=== PATIENT | male | born 1990 | race Caucasian/White ===

== ENCOUNTER → 2020-04-21 18:36 | Outpatient (BNVA) | payer SELFPAY | PROVIDERS: Family Provider Nurse Practitioner Family; PCP Nurse Practitioner Family; Visit Provider Family Medicine | DX: I10 Essential (primary) hypertension (principal); G25.81 Restless legs syndrome; R35.0 Frequency of micturition; R10.9 Unspecified abdominal pain; Z13.1 Encounter for screening for diabetes mellitus; Z68.44 Body mass index [BMI] 60.0-69.9, adult; Z13.220 Encounter for screening for lipoid disorders | CPT/HCPCS: 80053; 80061; 81000; 83036; 83690; 85025 ==

== ENCOUNTER → 2020-04-23 15:27 | Outpatient (BNVA) | payer SELFPAY | PROVIDERS: Family Provider Nurse Practitioner Family; PCP Nurse Practitioner Family; Visit Provider Emergency Medicine | DX: M10.9 Gout, unspecified (principal) | CPT/HCPCS: 84550 ==

== ENCOUNTER 2021-02-09 07:53 | Emergency (ER) | payer SELFPAY ==
[2021-02-09] VITALS (7 sets, daily range): BP systolic 123–163; BP diastolic 83–129; PULSE 79–117; RESP 16–95; TEMP 36.2; O2SAT 94–98; BMI 67.3
--- NOTE | 2021-02-09 08:18 | W.ED.CHESTPA ---
HPI - Chest Pain General: Chief Complaint: Chest Pain Stated Complaint: Chest Pain Time Seen by Provider: 02/09/21 07:54 History of Present Illness: HPI narrative: 30-year-old male presents emergency room complaining of chest pain. He had an episode 2 days ago began while he was preparing to go to a [employer] he took some aspirin at his regular medicines lisinopril and citalopram and seem to resolve eventually cannot recall how long it was not associated with any shortness of breath diaphoresis nausea or vomiting. 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 He has not taken anything for it this morning. He has a history of diabetes mellitus and hypertension. He is diabetic controlled insulin this was restarted on a new drug but evidently they have not started him on that yet. He denies any associated shortness of breath with this denies any cough fever sweats or chills. Sometime in his early 20s he had a angiogram done which she reports showed enlarged heart but was otherwise negative this was done in [place].. MD complaint: chest pain Pertinent past history: coronary artery disease Onset (ago): day(s) Timing of current episode: episodic Onset: during rest Pain location: left chest Pain radiation: back, jaw/teeth and left shoulder Severity: mild Quality: tightness and heaviness Relieving factors: other (time) Exacerbating factors: nothing Associated symptoms: Reports leg edema, nausea, palpitations, sense of impending doom and vomiting; Deny abdominal pain, diaphoresis, dyspnea, fever(s) or syncope Treatment prior to arrival: none Review of Systems Const: Denies: fever(s) or diaphoresis ENMT: Denies: throat pain, ear or mastoid pain, nasal discharge or nasal congestion Card: Reports: palpitations; Denies: syncope Resp: Denies: dyspnea GI: Reports: nausea and vomiting; Denies: abdominal pain : Denies: flank pain, dysuria, urinary frequency or urinary urgency Skin/Breast: Denies: rash or pruritus [facility] ED PFSH: Medical History Diabetes Hypertension Surgical History H/O hernia repair S/P cholecystectomy S/P tonsillectomy Family History Other Heart disease Social History Smoking and tobacco status: current every day smoker smokeless tobacco Smokeless tobacco user: chewing tobacco Smokeless tobacco details: 1 CAN DAILY Alcohol intake: never Current gender identity: Male Physical Exam Const: COMMON NORMALS: no acute distress GENERAL APPEARANCE: cooperative and comfortable ORIENTATION/CONSCIOUSNESS: Yes awake, Yes oriented to person, Yes oriented to place and Yes oriented to time HENMT: COMMON NORMALS: normocephalic, atraumatic and hearing grossly normal bilaterally HEAD & SCALP: normocephalic and atraumatic Neck/C-Spine: COMMON NORMALS: no JVD Resp: COMMON NORMALS: normal respiratory effort, No retractions, No use of accessory muscles and clear to auscultation bilaterally AUSCULTATION: clear to auscultation bilaterally Cardio: COMMON NORMALS: no JVD, regular rate, regular rhythm and No murmurs present (Cardio) RATE: regular rate RHYTHM: regular rhythm GI: COMMON NORMALS: Soft to palpation and No hepatosplenomegaly present AUSCULTATION: Yes normoactive bowel sounds PALPATION: Yes Soft to palpation, No Tenderness to palpation present (GI), No Guarding due to palpation present (GI) and Yes No hepatosplenomegaly present Extremity: COMMON NORMALS: normal to inspection, capillary refill normal, no clubbing, cyanosis or edema, no calf tenderness and no pedal edema Neuro: SENSORIUM/ORIENTATION: Yes oriented to person, Yes oriented to place and Yes oriented to time Skin: COMMON NORMALS: no rashes or lesions noted GENERAL SKIN EXAM: no rashes or lesions noted Course Vital Signs: Vital signs: Vital Signs Temperature 97.1 F L 02/09/21 07:55 Pulse Rate 91 02/09/21 11:50 Respiratory Rate 19 H 02/09/21 11:50 Blood Pressure 123/88 02/09/21 11:50 Pulse Oximetry 98 02/09/21 11:50 MDM - Chest Pain MDM Narrative: Medical decision making narrative: Reviewed findings with the patient. We will start him on Imdur to have him take aspirin daily and set him up [facility] test return if he has any further problems. Lab Data: Labs: Lab Results 02/09/21 02/09/21 02/09/21 Range/Units 08:25 08:25 08:25 WBC 9.1 (4.0-10.0) 10^3/ uL RBC 5.15 (4.1-5.3) 10^6/u L Hgb 13.6 (11.7-16.6) g/dL Hct 43.1 (42.0-52.0) % MCV 83.7 (80-94) fL MCH 26.4 L (28.0-34.0) pg MCHC 31.6 (30.0-36.0) g/dL RDW 14.2 (12.1-15.1) % Plt Count 309 (130-400) 10^3/c mm MPV 11.4 H (7.4-10.4) fL Neut % (Auto) 49.3 % Lymph % (Auto) 39.2 % [place] % (Auto) 6.8 % Eos % (Auto) 3.1 % Baso % (Auto) 0.9 % Neut # (Auto) 4.50 (1.8-7.7) 10^3/u L Lymph # (Auto) 3.6 (0.8-4.8) 10^3/u L [place] # (Auto) 0.6 (0.2-0.9) 10^3/u L Eos # (Auto) 0.3 (0.0-0.8) 10^3/u L Baso # (Auto) 0.1 (0.0-0.1) 10^3/u L Nucleated RBC % (a uto) 0 % Nucleated RBCs # 0.0 /100WBC Sodium 134 L (136-145) mmol/L Potassium 4.5 (3.5-5.1) mmol/L Chloride 99 (98-107) mmol/L Carbon Dioxide 26 (22-29) mmol/L Anion Gap 13.5 (5-19) BUN 11 (6-20) mg/dL Creatinine 0.7 (0.7-1.2) mg/dL GFR Calculation 130.7 H (90-130) mL/min Glucose 231 H (65-115) mg/dL Calculated Osmolal ity 285 (285-295) mOsm/k g Calcium 8.3 L (8.5-10.5) mg/dL Total Bilirubin 0.4 (0.15-1.2) mg/dL AST 53 H (0-40) U/L ALT 74 H (0-41) U/L Alkaline Phosphata se 53 (40-130) IU/L Creatine Kinase 86 (39-308) U/L Troponin T Baselin e 8 (0-15) ng/L Troponin T 120 [place] (0-15) ng/L Delta Troponin T (0-10) ABS# Total Protein 6.7 (6.6-8.7) g/dL Albumin 3.9 (3.5-5.2) g/dL Globulin 2.8 (1.3-4.6) g/dL /03/25 Range/Units 10:26 WBC (4.0-10.0) 10^3/ uL RBC (4.1-5.3) 10^6/u L Hgb (11.7-16.6) g/dL Hct (42.0-52.0) % MCV (80-94) fL MCH (28.0-34.0) pg MCHC (30.0-36.0) g/dL RDW (12.1-15.1) % Plt Count (130-400) 10^3/c mm MPV (7.4-10.4) fL Neut % (Auto) % Lymph % (Auto) % [place] % (Auto) % Eos % (Auto) % Baso % (Auto) % Neut # (Auto) (1.8-7.7) 10^3/u L Lymph # (Auto) (0.8-4.8) 10^3/u L [place] # (Auto) (0.2-0.9) 10^3/u L Eos # (Auto) (0.0-0.8) 10^3/u L Baso # (Auto) (0.0-0.1) 10^3/u L Nucleated RBC % (a uto) % Nucleated RBCs # /100WBC Sodium (136-145) mmol/L Potassium (3.5-5.1) mmol/L Chloride (98-107) mmol/L Carbon Dioxide (22-29) mmol/L Anion Gap (5-19) BUN (6-20) mg/dL Creatinine (0.7-1.2) mg/dL GFR Calculation (90-130) mL/min Glucose (65-115) mg/dL Calculated Osmolal ity (285-295) mOsm/k g Calcium (8.5-10.5) mg/dL Total Bilirubin (0.15-1.2) mg/dL AST (0-40) U/L ALT (0-41) U/L Alkaline Phosphata se (40-130) IU/L Creatine Kinase (39-308) U/L Troponin T Baselin e (0-15) ng/L Troponin T 120 [place] 6.00 (0-15) ng/L Delta Troponin T -2.00 L (0-10) ABS# Total Protein (6.6-8.7) g/dL Albumin (3.5-5.2) g/dL Globulin (1.3-4.6) g/dL Discharge Plan Discharge Patient Disposition: Home Clinical Impression: Atypical chest pain Condition: Stable Prescriptions: New isosorbide mononitrate 30 mg tablet extended release 24 hr 30 mg PO DAILY Qty: 30 RF: 0 Aspirin Childrens 81 mg tablet,chewable 81 mg PO DAILY Qty: 30 RF: 0 No Action methylprednisolone [Medrol (Claudy)] 4 mg tablets,dose pack See Rx Instructions PO PER PKG DIR Qty: 21 RF: 0 triamcinolone acetonide 0.5 % ointment 1 applic TOPICAL BID Qty: 15 RF: 1 Novolin N NPH U-100 Insulin 100 unit/mL suspension 5 unit SUBCUT BID Qty: 10 RF: 1 (DME) insulin syringes (disposable) 1 mL syringe See Rx Instructions .ROUTE .MEDSUPPLY Qty: 100 RF: 5 allopurinol 100 mg tablet 50 mg PO DAILY Qty: 30 RF: 1 prednisone 10 mg tablet 30 mg PO DAILY 5 Days Qty: 15 RF: 0 ibuprofen 600 mg tablet 600 mg PO Q8H PRNRF: 0 albuterol sulfate [ProAir HFA] 90 mcg/actuation HFA aerosol inhaler 2 puff INHALATION QID PRN (Reason: shortness of breath or wheezing) 30 Days Qty: 18 RF: 5 ropinirole 1 mg tablet 1 mg PO DAILY 30 Days Qty: 30 RF: 1 metoprolol succinate 25 mg tablet extended release 24 hr 25 mg PO DAILY 30 Days Qty: 30 RF: 1 lisinopril-hydrochlorothiazide 20-25 mg tablet 1 tab PO DAILY 30 Days Qty: 30 RF: 1 escitalopram oxalate 10 mg tablet 10 mg PO QDAY Qty: 30 RF: 0 Discharge Orders: Discharge ED (Routine); Ordered 02/09/21 Ordered By: William Nieto Referrals: Violet Alex MD [Primary Care Provider] - Discharge Diet: Usual diet Discharge Activity: Increase activity as tolerated Patient Instructions: Opioid Safety Coding Level of Care Code ED French Cord Binder for Chg Fwd Exam Comprehensive
--- NOTE | 2021-02-09 08:19 | ECG_ITS ---
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 Measurements Intervals [place] Rate: 98 P: 41 OK: 134 QRS: 58 QRSD: 109 T: 29 QT: 359 QTc: 460 Interpretive Statements SINUS RHYTHM INCOMPLETE RIGHT BUNDLE BRANCH BLOCK [90+ ms QRS DURATION, TERMINAL R IN V1/V2, 40+ ms S IN I/aVL/V4/V5/V6] Compared to ECG 06/28/2018 12:03:05 No significant changes Electronically Signed On 02-09-2021 12:31:57 CDT by Jack Honeycutt M.D. [id number]
--- NOTE | 2021-02-09 08:19 | XRR_ITS ---
PROCEDURE INFORMATION: Exam: XR Chest Exam date and time: 02/09/2021 8:23 AM Age: 30 years old Clinical indication: Pain; Chest pressure; Additional info: Chest pain TECHNIQUE: Imaging protocol: XR of the chest. Views: 1 view. COMPARISON: CR Chest 1 [place] [id number] 06/28/2018 12:26 PM FINDINGS: Lungs: Hyperinflation and mild interstitial prominence, without acute airspace disease. Pleural spaces: No pleural effusion. Heart/Mediastinum: Cardiac silhouette accentuated by epicardial fat. Bones/joints: Unremarkable. XR/XR chest 1V portable [id number] IMPRESSION: No acute airspace or pleural disease.
[2021-02-09 08:41] LABS: Basophils # 0.1 10^3/uL (0.0-0.1); Basophils % 0.9 %; Eosinophils # 0.3 10^3/uL (0.0-0.8); Eosinophils % 3.1 %; Hematocrit 43.1 % (42.0-52.0); Hemoglobin 13.6 g/dL (11.7-16.6); Lymphocytes # 3.6 10^3/uL (0.8-4.8); Lymphocytes % 39.2 %; Mean Corpuscular HGB Conc 31.6 g/dL (30.0-36.0); Mean Corpuscular Hemoglobin 26.4 pg (28.0-34.0); Mean Corpuscular Volume 83.7 fL (80-94); Mean Platelet Volume 11.4 fL (7.4-10.4); Monocytes # 0.6 10^3/uL (0.2-0.9); Monocytes % 6.8 %; Neutrophils % 49.3 %; Nucleated Red Blood Cells % 0 %; Platelet Count 309 10^3/cmm (130-400); Red Blood Count 5.15 10^6/uL (4.1-5.3); Red Cell Distribution Width 14.2 % (12.1-15.1); White Blood Count 9.1 10^3/uL (4.0-10.0)
[2021-02-09] MEDS: aspirin 81 mg Chew Tablet 324 MG PO (08:44)
[2021-02-09 09:00] LABS: Troponin(5th) Baseline 8 ng/L (0-15)
[2021-02-09 09:02] LABS: Alanine Aminotransferase 74 U/L (0-41); Albumin Level 3.9 g/dL (3.5-5.2); Alkaline Phosphatase 53 IU/L (40-130); Anion Gap 13.5 (5-19); Aspartate Amino Transferase 53 U/L (0-40); Blood Urea Nitrogen 11 mg/dL (6-20); Calcium 8.3 mg/dL (8.5-10.5); Carbon Dioxide 26 mmol/L (22-29); Chloride 99 mmol/L (98-107); Creatine Phosphokinase 86 U/L (39-308); Globulin 2.8 g/dL (1.3-4.6); Glomerular Filtration Rate 130.7 mL/min (90-130); Glucose 231 mg/dL (65-115); Osmolality Calculated 285 mOsm/kg (285-295); Potassium 4.5 mmol/L (3.5-5.1); Sodium 134 mmol/L (136-145); Total Bilirubin 0.4 mg/dL (0.15-1.2); Total Protein 6.7 g/dL (6.6-8.7)
--- NOTE | 2021-02-09 10:19 | ECG_ITS ---
[facility] Test Date: 2021-02-09 Pat Name: Wiliam Cain Department: Room: Gender: Male Psychologist Chief: : 1990 Requested By: William Cuba Order Number: [id number] Abigail MD: Jack Honeycutt M.D. Measurements Intervals [place] Rate: 76 P: 0 PA: 131 QRS: 55 QRSD: 106 T: 25 QT: 394 QTc: 445 Interpretive Statements SINUS RHYTHM INCOMPLETE RIGHT BUNDLE BRANCH BLOCK [90+ ms QRS DURATION, TERMINAL R IN V1/V2, 40+ ms S IN I/aVL/V4/V5/V6] NONSPECIFIC T-WAVE ABNORMALITY Compared to ECG 02/09/2021 08:01:10 T-wave abnormality now present Electronically Signed On 02-09-2021 12:36:11 CDT by Jack Honeycutt M.D. [id number] f
--- NOTE | 2021-02-11 14:34 | DCPLANNER ---
ar manager had message to schedule an outpatient stress test for patient. ar manager faxed signed order to centralized scheduling. ar manager will call for appointment information.
--- NOTE | 2021-02-19 12:36 | DCPLANNER ---
Patient has a follow up appointment scheduled for Tuesday, March 06, 2021 at 9:15 for an outpatient stress test.
--- NOTE | 2021-04-02 06:58 | DCPLANNER ---
Patient had an out patient stress test scheduled for 03.06.21 - the test was cancelled.
== END 2021-02-09 11:53 | disposition home or self-care (01) ==
PROVIDERS: Emergency Provider Family Medicine; PCP Family Medicine
DX: R07.89 Other chest pain (principal); Z79.4 Long term (current) use of insulin; E11.9 Type 2 diabetes mellitus without complications; I10 Essential (primary) hypertension; F17.220 Nicotine dependence, chewing tobacco, uncomplicated
CPT/HCPCS: 36415; 71045; 80053; 82550; 84484; 85025; 93005; 99283

== ENCOUNTER 2021-02-22 11:30 | Emergency (ER) | payer SELFPAY ==
[2021-02-22 11:50] VITALS: PULSE 107; RESP 24; TEMP 36.9; O2SAT 94; BMI 63.3
--- NOTE | 2021-02-22 12:09 | XRR_ITS ---
PROCEDURE INFORMATION: Exam: XR Chest Exam date and time: 02/22/2021 12:09 PM Age: 30 years old Clinical indication: Shortness of breath; Additional info: SOB TECHNIQUE: Imaging protocol: XR of the chest. Views: 1 view. COMPARISON: CR XR chest 1V portable [id number] 02/09/2021 8:28 AM FINDINGS: Lungs: Unremarkable. No consolidation. Pleural spaces: Unremarkable. No pleural effusion. No pneumothorax. Heart/Mediastinum: Unremarkable. No cardiomegaly. Bones/joints: Unremarkable. XR/XR chest 1V portable [id number] IMPRESSION: No acute findings.
--- NOTE | 2021-02-22 12:09 | ECG_ITS ---
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 Measurements Intervals [place] Rate: 110 P: 28 [place]: 128 QRS: 51 QRSD: 110 T: 15 QT: 329 QTc: 446 Interpretive Statements SINUS TACHYCARDIA INCOMPLETE RIGHT BUNDLE BRANCH BLOCK [90+ ms QRS DURATION, TERMINAL R IN V1/V2, 40+ ms S IN I/aVL/V4/V5/V6] NONSPECIFIC T-WAVE ABNORMALITY ABNORMAL RHYTHM ECG Compared to ECG 02/09/2021 10:40:19 Sinus rhythm no longer present T-wave abnormality still present Electronically Signed On 02-22-2021 19:10:35 CDT by Jorge Russell M.D. [id number]
--- NOTE | 2021-02-22 12:10 | W.ED.SOB ---
HPI - SOB/Dyspnea General: Chief Complaint: Shortness of Breath/Dyspnea Stated Complaint: sob/cp Time Seen by Provider: 02/22/21 12:04 History of Present Illness: HPI Narrative: he presents from [facility] today with increasing shortness of breath and chest discomfort. Patient said he has been sick the last 2 to 3 weeks having more difficult time breathing said he is having to use inhaler more often. Has had some sinus and allergy problems also. Does have stress test scheduled in the next couple weeks. He says his chest discomfort comes when he takes in a deep breath. MD elicited complaint: shortness of breath, cough and pain with inspiration Pertinent past history: asthma Onset (ago): week(s) Context: recent illness Timing: intermittent and progressively worsening Severity: moderate Exacerbating factors: exertion Associated symptoms: Reports chest congestion and cough; Deny abdominal pain, chest pain, extremity pain, fever(s), nausea or vomiting Review of Systems Const: Denies: fever(s), chills or body aches Eyes: Denies: change in vision or blurry vision ENMT: Reports: nasal congestion; Denies: throat pain Card: Denies: chest pain or dyspnea on exertion Resp: Reports: dyspnea, productive cough, pain on inspiration, chest congestion and other (Pleuritic pain) GI: Denies: abdominal pain, nausea or vomiting : Denies: difficulty urinating Musc: Denies: extremity pain Skin/Breast: Denies: rash Neuro: Denies: headache(s) Psych: Denies: anxiety or depression Stas/Lymph: Denies: easy bruising PFSH ED PFSH: Medical History Diabetes Hypertension Surgical History H/O hernia repair S/P cholecystectomy S/P tonsillectomy Family History Other Heart disease Social History Smoking and tobacco status: current every day smoker smokeless tobacco Smokeless tobacco user: chewing tobacco Smokeless tobacco details: 1 CAN DAILY Alcohol intake: never Current gender identity: Male Physical Exam Const: COMMON NORMALS: no acute distress, average body habitus and patient oriented x3 HENMT: COMMON NORMALS: normocephalic HEAD & SCALP: normal to inspection and normocephalic FACE & SINUS: normal facial exam Eye: COMMON NORMALS: conjunctivae normal GENERAL EYE: appearance normal, both eyes and all related structures CONJUNCTIVA: Yes conjunctivae normal Neck/C-Spine: COMMON NORMALS: no JVD Chest: COMMONS NORMALS: normal inspection of the chest Resp: COMMON NORMALS: normal respiratory effort and clear to auscultation bilaterally AUSCULTATION: clear to auscultation bilaterally, rhonchi, wheezes and diminished lung sounds Cardio: COMMON NORMALS: no JVD, regular rate and regular rhythm RATE: regular rate RHYTHM: regular rhythm GI: COMMON NORMALS: Normal to inspection, nondistended, normoactive bowel sounds present Extremity: COMMON NORMALS: normal to inspection and full ROM Neuro: COMMON NORMALS: patient oriented x3 Course Vital Signs: Vital signs: Vital Signs Temperature 98.5 F 02/22/21 11:50 Pulse Rate 104 H 02/22/21 12:55 Respiratory Rate 19 H 02/22/21 12:55 Blood Pressure 100/62 02/22/21 12:55 Pulse Oximetry 92 02/22/21 12:55 MDM - SOB/Dyspnea MDM Narrative: Medical decision making narrative: Mr. Cain is a pleasant overweight patient is having some difficulty breathing over the last few weeks. Has a history of asthma does use nebulizer and inhaler. Patient's had a cough been having some shortness of breath. Pain with inspiration. Also has history of chronic obstructive sleep apnea pretty severe. Sats drop while sleeping. Just started recently on diabetic medication this past week. Patient's labs show high blood sugar today low sodium x-rays negative for pneumonia troponin was normal at 6. Patient responded well to breathing treatment. Patient will have medications added to his regimen encouraged to take Metformin 500 twice a day while he is on his steroid medication is to follow-up Dr. Alex here soon. Lab Data: Labs: Lab Results 02/22/21 02/22/21 02/22/21 Range/Units 12:38 12:38 12:38 WBC 11.1 H (4.0-10.0) 10^3/ uL RBC 5.18 (4.1-5.3) 10^6/u L Hgb 13.8 (11.7-16.6) g/dL Hct 44.0 (42.0-52.0) % MCV 84.9 (80-94) fL MCH 26.6 L (28.0-34.0) pg MCHC 31.4 (30.0-36.0) g/dL RDW 13.9 (12.1-15.1) % Plt Count 306 (130-400) 10^3/c mm MPV 11.7 H (7.4-10.4) fL Neut % (Auto) 44.8 % Lymph % (Auto) 44.1 % [place] % (Auto) 7.0 % Eos % (Auto) 3.2 % Baso % (Auto) 0.6 % Neut # (Auto) 4.98 (1.8-7.7) 10^3/u L Lymph # (Auto) 4.9 H (0.8-4.8) 10^3/u L [place] # (Auto) 0.8 (0.2-0.9) 10^3/u L Eos # (Auto) 0.4 (0.0-0.8) 10^3/u L Baso # (Auto) 0.1 (0.0-0.1) 10^3/u L Nucleated RBC % (a uto) 0 % Nucleated RBCs # 0.0 /100WBC Sodium 129 L (136-145) mmol/L Potassium 4.5 (3.5-5.1) mmol/L Chloride 93 L (98-107) mmol/L Carbon Dioxide 25 (22-29) mmol/L Anion Gap 15.5 (5-19) BUN 14 (6-20) mg/dL Creatinine 1.0 (0.7-1.2) mg/dL GFR Calculation 86.6 L (90-130) mL/min Glucose 368 H (65-115) mg/dL Calculated Osmolal ity 283 L (285-295) mOsm/k g Calcium 9.0 (8.5-10.5) mg/dL Total Bilirubin 0.4 (0.15-1.2) mg/dL AST 57 H (0-40) U/L ALT 98 H (0-41) U/L Alkaline Phosphata se 58 (40-130) IU/L Troponin T Baselin e 6 (0-15) ng/L Total Protein 6.8 (6.6-8.7) g/dL Albumin 3.7 (3.5-5.2) g/dL Globulin 3.1 (1.3-4.6) g/dL EKG Data^: EKG 1: EKG Interpretation Date: 02/22/21 EKG interpretation time: 12:20 Computer Generated Interpretation: Sinus tachycardia ventricular rate 110 bpm [place] interval 128 ms QRS durations 110 ms QT is 329 ms right bundle branch block Discharge Plan Discharge Patient Disposition: Home Clinical Impression: Acute asthmatic bronchitis, Hyponatremia Diabetes Qualifiers: Diabetes mellitus type: type 2 Diabetes mellitus skilled nursing insulin use: without intermodal dispatcher use Diabetes mellitus complication status: with hyperglycemia Qualified Code(s): E11.65 - Type 2 diabetes mellitus with hyperglycemia Apnea, sleep Qualifiers: Sleep apnea type: other type Qualified Code(s): G47.39 - Other sleep apnea Condition: Stable Prescriptions: New prednisone 20 mg tablet 10 mg PO DAILY Qty: 7 RF: 0 Flovent HFA 110 mcg/actuation HFA aerosol inhaler 2 inh inhalation BID Qty: 12 RF: 0 doxycycline hyclate 100 mg capsule 100 mg PO BID 7 Days Qty: 14 RF: 0 ipratropium-albuterol 0.5 mg-3 mg(2.5 mg base)/3 mL solution for nebulization 3 ml inhalation Q8H PRN (Reason: shortness of breath or wheezing) Qty: 90 RF: 0 No Action metformin 500 mg tablet 500 mg PO DAILY 30 Days Qty: 30 RF: 0 isosorbide mononitrate 30 mg tablet extended release 24 hr 30 mg PO DAILY Qty: 30 RF: 0 gabapentin 300 mg capsule 300 mg PO TID PRN (Reason: back pain) 30 Days Qty: 90 RF: 1 lisinopril 20 mg tablet 20 mg PO DAILY 30 Days Qty: 30 RF: 1 hydrochlorothiazide 25 mg tablet 25 mg PO QAM 30 Days Qty: 30 RF: 1 ibuprofen 600 mg tablet 600 mg PO Q8H PRNRF: 0 albuterol sulfate [ProAir HFA] 90 mcg/actuation HFA aerosol inhaler 2 puff INHALATION QID PRN (Reason: shortness of breath or wheezing) 30 Days Qty: 18 RF: 5 Aspirin Childrens 81 mg tablet,chewable 81 mg PO DAILY Qty: 30 RF: 0 Discharge Orders: Discharge ED (Routine); Ordered 02/22/21 Ordered By: Petey Ma Referrals: Violet Alex MD [Primary Care Provider] - Discharge Diet: Usual diet Discharge Activity: Increase activity as tolerated Patient Instructions: Hyperglycemia, Acute Bronchitis (ED) Activity Restrictions/Additional Instructions: Follow-up with medical provider as directed. Take medications as prescribed. Return to the ER or your medical provider if condition worsens. Please read and understand discharge instructions. If any questions ask please. Use Metformin 500 mg twice a day while taking steroids. Follow-up Dr. Alex as soon as possible. Coding Level of Care Code ED [facility] Medical Biller for Chg Fwd Exam Comprehensive
[2021-02-22 12:17] VITALS: PULSE 108; PULSE 110; RESP 18; O2SAT 92
[2021-02-22] MEDS: ipratropium-albuterol 3 mL Neb INHALATION (12:22)
[2021-02-22 12:24] VITALS: PULSE 107; RESP 18; O2SAT 95
[2021-02-22 12:28] VITALS: PULSE 116; RESP 18; O2SAT 95
[2021-02-22 12:47] LABS: Basophils # 0.1 10^3/uL (0.0-0.1); Basophils % 0.6 %; Eosinophils # 0.4 10^3/uL (0.0-0.8); Eosinophils % 3.2 %; Hemoglobin 13.8 g/dL (11.7-16.6); Lymphocytes # 4.9 10^3/uL (0.8-4.8); Lymphocytes % 44.1 %; Mean Corpuscular HGB Conc 31.4 g/dL (30.0-36.0); Mean Corpuscular Hemoglobin 26.6 pg (28.0-34.0); Mean Corpuscular Volume 84.9 fL (80-94); Mean Platelet Volume 11.7 fL (7.4-10.4); Monocytes # 0.8 10^3/uL (0.2-0.9); Neutrophils # 4.98 10^3/uL (1.8-7.7); Neutrophils % 44.8 %; Nucleated Red Blood Cells % 0 %; Platelet Count 306 10^3/cmm (130-400); Red Blood Count 5.18 10^6/uL (4.1-5.3); Red Cell Distribution Width 13.9 % (12.1-15.1); White Blood Count 11.1 10^3/uL (4.0-10.0)
[2021-02-22 12:55] VITALS: BP 100/62; PULSE 104; RESP 19; O2SAT 92
[2021-02-22 13:09] LABS: Troponin(5th) Baseline 6 ng/L (0-15)
[2021-02-22 13:12] LABS: Alanine Aminotransferase 98 U/L (0-41); Albumin Level 3.7 g/dL (3.5-5.2); Alkaline Phosphatase 58 IU/L (40-130); Anion Gap 15.5 (5-19); Aspartate Amino Transferase 57 U/L (0-40); Blood Urea Nitrogen 14 mg/dL (6-20); Carbon Dioxide 25 mmol/L (22-29); Chloride 93 mmol/L (98-107); Globulin 3.1 g/dL (1.3-4.6); Glomerular Filtration Rate 86.6 mL/min (90-130); Glucose 368 mg/dL (65-115); Osmolality Calculated 283 mOsm/kg (285-295); Potassium 4.5 mmol/L (3.5-5.1); Sodium 129 mmol/L (136-145); Total Bilirubin 0.4 mg/dL (0.15-1.2); Total Protein 6.8 g/dL (6.6-8.7)
[2021-02-22] MEDS: sodium chloride 0.9% 1,000 ML 999 ML IV (14:10)
[2021-02-22 14:54] VITALS: BP 101/58; PULSE 85; RESP 19; O2SAT 94
[2021-02-22 15:16] LABS: Troponin 5 2HR 6.68 ng/L (0-15); Troponin 5 2HR Delta 0.68 ABS# (0-10)
== END 2021-02-22 15:33 | disposition home or self-care (01) ==
PROVIDERS: Emergency Provider Nurse Practitioner Family; PCP Family Medicine
DX: J45.909 Unspecified asthma, uncomplicated (principal); E87.1 Hypo-osmolality and hyponatremia; E11.65 Type 2 diabetes mellitus with hyperglycemia; G47.39 Other sleep apnea; Z79.84 Long term (current) use of oral hypoglycemic drugs; Z79.82 Long term (current) use of aspirin; I10 Essential (primary) hypertension; F17.220 Nicotine dependence, chewing tobacco, uncomplicated
CPT/HCPCS: 36415; 71045; 80053; 84484; 85025; 93005; 94640; 96361; 96374; 99284; J2930; J7030

== ENCOUNTER → 2021-03-12 11:09 | Outpatient (BNVA) | payer MEDICAID, SELFPAY | PROVIDERS: PCP Family Medicine; Visit Provider Family Medicine | DX: I10 Essential (primary) hypertension (principal); E11.65 Type 2 diabetes mellitus with hyperglycemia; M51.36 Other intervertebral disc degeneration, lumbar region; E87.1 Hypo-osmolality and hyponatremia; J44.9 Chronic obstructive pulmonary disease, unspecified; R07.89 Other chest pain; R00.0 Tachycardia, unspecified; R79.81 Abnormal blood-gas level | CPT/HCPCS: 80053; 83036; 85025; 85379 ==

== ENCOUNTER 2021-03-13 10:16 | Outpatient (CLI) | payer MEDICAID, SELFPAY ==
--- NOTE | 2021-03-13 11:00 | CT_ITS ---
WS: [id number] CTA OF THE CHEST WITH PULMONARY EMBOLISM PROTOCOL TECHNIQUE: High-resolution contrast enhanced CTA of the chest with coronal and sagittal reformatted i mages with pulmonary embolism protocol. MIP images are also reviewed. CLINICAL INFORMATION: R07.89 - Other chest pain COMPARISON: None. DLP: 926.[address] scans at [facility] use at least one of these dose optimization techniques: automat ed exposure control; mA and/or kV adjustment per patient size (includes targeted exams where dose is matched to clinical indication); or iterative reconstruction. FINDINGS: Proximal main pulmonary arteries are normal. Visualized segmental and subsegmental pulmonary arteries appear patent. Distal pulmonary arteries not well visualized due to body habitus. No evidence of pul monary embolus. Normal caliber thoracic aorta. Aberrant right subclavian artery. No mediastinal or hilar lymphadenopa thy. Both lungs are well aerated. No acute pulmonary infiltrates. No focal pneumonia or pleural fluid . Tiny noncalcified nodule right upper lobe laterally measuring 3 mm. No axillary lymphadenopathy. Cholecystectomy clips. Adrenal glands are normal. Enlarged peripancreati c and shelly hepatis lymph nodes partially visualized in the upper abdomen are nonspecific. This can b e further evaluated with contrast-enhanced abdomen pelvis CT. Largest lymph node measures 2.3 x [address]/CT angio chest PE protcl [id number] IMPRESSION: 1. Proximal main pulmonary arteries are normal. Normal segmental and subsegmen erich pulmonary arteries. No evidence of pulmonary embolus. Distal pulmonary tanvir mita not well evaluated due to body habitus. 2. No mediastinal or hilar lymphadenopathy. 3. Aberrant right subclavian artery. 4. No acute pulmonary infiltrates. No consolidation or pleural fluid. 5. Enlarged upper abdominal and shelly hepatis lymph nodes largest measuring 2. 3 x 1.7 CCM. These are nonspecific and can be further evaluated with contrast-e nhanced abdomen pelvis CT.
[2021-03-13] MEDS: iohexol 350 mg/mL 100 mL Btl IV (11:30)
== END 2021-03-13 10:17 | disposition home or self-care (01) ==
LOC: RADWPI 10:17
PROVIDERS: PCP Family Medicine; Visit Provider Family Medicine
DX: R07.89 Other chest pain (principal); R00.0 Tachycardia, unspecified; R06.02 Shortness of breath; R59.0 Localized enlarged lymph nodes; Q27.8 Other specified congenital malformations of peripheral vascular system
CPT/HCPCS: 71275; Q9967

== ENCOUNTER → 2021-04-08 10:50 | Outpatient (BNVA) | payer MEDICAID, SELFPAY | PROVIDERS: PCP Family Medicine; Visit Provider Family Medicine | DX: M54.9 Dorsalgia, unspecified (principal); R59.0 Localized enlarged lymph nodes; E11.65 Type 2 diabetes mellitus with hyperglycemia; M62.830 Muscle spasm of back; R06.02 Shortness of breath; G47.33 Obstructive sleep apnea (adult) (pediatric); R07.89 Other chest pain; R91.1 Solitary pulmonary nodule | CPT/HCPCS: 80053; 81000; 83690 ==

== ENCOUNTER 2021-04-16 09:07 | Outpatient (CLI) | payer MEDICAID, SELFPAY ==
[2021-04-16] MEDS: iohexol 350 mg/mL 100 mL Btl IV (09:59)
--- NOTE | 2021-04-16 10:30 | CT_ITS ---
WS: [id number] CT ABDOMEN AND PELVIS WITH CONTRAST HISTORY: R59.0 - Localized enlarged lymph nodes TECHNIQUE: Imaging performed of the abdomen and pelvis with IV contrast. Single phase imaging of the abdomen. Coronal and sagittal reformats are submitted. All CT scans at [facility] use at least one of these dose optimization techniques: automated exposure control; mA and/or kV adjustment per patient size (includes targeted exams where dose is matched to clinical indication); or iterativ e reconstruction. IV CONTRAST: Omnipaque 300; 95 mL IV. Oral contrast: No DLP: 2816.79 mGy.cm COMPARISON: 03/13/2021 Lower thorax: Lung bases are clear. Heart is normal size. No hiatal hernia. Liver/biliary system: Marked enlargement of the liver extends over length of 22 cm with hepatic steat osis. No bile duct dilatation or mass. Gallbladder: Status post cholecystectomy. Pancreas: Normal size pancreas and pancreatic duct. No adjacent inflammation. Spleen: Normal size spleen. No mass or infarct. Adrenal glands: Normal. Right kidney: Normal. Left kidney: Normal. Aorta: Normal. Lymphadenopathy: There are several ovoid shaped lymph nodes in the shelly hepatis and celiac axis. Sim ilar to the prior study of 03/13/2021. Largest lymph node measures 2.5 x 1.4 cm anterior to the IVC. Th ere are additional smaller nodes around the celiac axis and shelly hepatis. Smaller mesenteric and RIG HT lower quadrant lymph nodes. Free fluid: None. GI tract: Appendix is normal. No GI tract obstruction. Abdominal wall: Unremarkable abdominal wall. No hernia. Pelvis: No free fluid or adenopathy within the pelvis. Minimally distended urinary bladder. Bones: No destructive bone lesions. L5 bilateral pars defects. CT/CT abdomen pelvis w con* [id number] IMPRESSION: 1. Again noted are the mildly prominent celiac axis, shelly hepatis and mesente naga lymph nodes. These may be reactive lymph nodes or secondary to mesenteric a denitis. Cannot exclude early neoplasm such as lymphoma. No additional source o f these mildly enlarged lymph nodes is evident. May need short-term follow-up C T abdomen and pelvis, 3 months, for further evaluation and assess for stability . 2. Marked hepatomegaly and hepatic steatosis. 3. Prior cholecystectomy.
== END 2021-04-16 09:08 | disposition home or self-care (01) ==
PROVIDERS: PCP Family Medicine; Visit Provider Family Medicine
DX: R59.0 Localized enlarged lymph nodes (principal); Z90.49 Acquired absence of other specified parts of digestive tract; R16.0 Hepatomegaly, not elsewhere classified; K76.0 Fatty (change of) liver, not elsewhere classified
CPT/HCPCS: 74177; Q9967

== ENCOUNTER → 2021-04-23 11:04 | Outpatient (BNVA) | payer MEDICAID, SELFPAY | PROVIDERS: PCP Family Medicine; Visit Provider Family Medicine | DX: J45.30 Mild persistent asthma, uncomplicated (principal); I10 Essential (primary) hypertension; E11.65 Type 2 diabetes mellitus with hyperglycemia; J44.9 Chronic obstructive pulmonary disease, unspecified; R34 Anuria and oliguria; R74.8 Abnormal levels of other serum enzymes | CPT/HCPCS: 80053; 80074; 81000; 83036; 83735; 85025 ==

== ENCOUNTER → 2021-04-24 14:12 | Outpatient (BNVA) | payer MEDICAID, SELFPAY | PROVIDERS: PCP Family Medicine; Referring Provider Family Medicine; Visit Provider Family Medicine | DX: R34 Anuria and oliguria (principal) | CPT/HCPCS: 81000; 87086 ==

== ENCOUNTER 2021-04-27 20:00 | Outpatient (CLI) | payer MEDICAID, SELFPAY | END 2021-04-27 20:01 | disposition home or self-care (01) | LOC: SLEEP 04-28 09:44 | PROVIDERS: PCP Family Medicine; Visit Provider Family Medicine | DX: G47.33 Obstructive sleep apnea (adult) (pediatric) (principal); J45.30 Mild persistent asthma, uncomplicated | CPT/HCPCS: 95810 ==

== ENCOUNTER 2021-04-28 15:37 | Emergency (ER) | payer MEDICAID, SELFPAY ==
[2021-04-28 15:57] VITALS: BP 164/83; PULSE 115; RESP 22; TEMP 36.7; O2SAT 94
--- NOTE | 2021-04-28 16:42 | XRR_ITS ---
PROCEDURE INFORMATION: Exam: XR Chest Exam date and time: 04/28/2021 4:42 PM Age: 30 years old Clinical indication: Other: Syncope; Additional info: Syncopal episode x today TECHNIQUE: Imaging protocol: XR of the chest. Views: 1 view. COMPARISON: CR XR chest 1V portable [id number] 02/22/2021 12:39 PM FINDINGS: Lungs: Unremarkable. No consolidation. Pleural spaces: Unremarkable. No pleural effusion. No pneumothorax. Heart/Mediastinum: Unremarkable. No cardiomegaly. Bones/joints: Unremarkable. XR/XR chest 1V portable [id number] IMPRESSION: No acute findings.
--- NOTE | 2021-04-28 16:42 | ECG_ITS ---
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 Measurements Intervals [place] Rate: 109 P: 46 [place]: 132 QRS: 71 QRSD: 126 T: 44 QT: 335 QTc: 451 Interpretive Statements SINUS TACHYCARDIA POSSIBLE RIGHT VENTRICULAR CONDUCTION DELAY [RSR (QR) IN V1/V2] ABNORMAL RHYTHM ECG Compared to ECG 02/22/2021 12:19:22 Incomplete right bundle-branch block no longer present T-wave abnormality no longer present Electronically Signed On 04-28-2021 17:07:35 CDT by Jack Honeycutt M.D. [id number]
--- NOTE | 2021-04-28 18:42 | ECG_ITS ---
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 Measurements Intervals [place] Rate: 106 P: 34 NH: 133 QRS: 54 QRSD: 105 T: 25 QT: 327 QTc: 436 Interpretive Statements SINUS TACHYCARDIA Compared to ECG 04/28/2021 16:08:57 No significant changes Electronically Signed On 04-28-2021 21:39:49 CDT by Jack Honeycutt M.D. [email or web address]/store/[id number]
--- NOTE | 2021-04-28 19:12 | ED_ITS ---
HPI - Syncope General: Chief Complaint: Syncope Stated Complaint: SYNCOPAL EVENT TODAY; DIZZY FOR PAST WEEK Time Seen by Provider: 04/28/21 19:12 History of Present Illness: HPI narrative: Mr. Cain is a 30-year-old gentleman with significant past medical history of diabetes and recent multiple changes in health presents to the emergency department due to syncope. He reports symptoms started approximately 1 week ago and was subacute. He describes spinning sensation followed by near syncope that occur at various times and in various positions. He cannot think of any specific provoking or exacerbating factor. Today he had a actual syncopal event associated with 1 of these episodes. Overall the intensity of symptoms is moderate to severe. He is associated generalized malaise. No other specific exacerbating relieving factors identified. Prior to 1 week ago he has never had similar episodes in the past. Review of Systems General: Reports: 10 or more systems reviewed and unremarkable except in HPI and below Narrative: CONSTITUTIONAL: positive for fever, fatigue, weakness EYES - denies pain, denies loss of vision EARS - denies ear issues. NOSE - denies congestion or rhinorrhea. THROAT - denies sore throat or difficulty swallowing. CARDIOVASCULAR - positive for chest pain at times, no palpatations RESPIRATORY - positive shortness of breath no cough GASTROINTESTINAL - positive for abdominal pain, no nausea vomiting, no changes in bowel habits GENITOURINARY - denies dysuria or urinary frequency MUSCULOSKELETAL- denies deformity or pain SKIN - denies rashes or new changed skin lesions NEUROLOGIC - see hpi HEMATOLOGIC/LYMPHATIC - denies easy bruising or lymphadenopathy. [facility] PFSH: Medical History Diabetes Can not tolerate high dose metformin Hypertension Morbid obesity with BMI of 60.0-69.9, adult Surgical History H/O hernia repair S/P cholecystectomy S/P tonsillectomy Family History Other Heart disease Social History Smoking and tobacco status: never smoked Alcohol intake: never Current gender identity: Male Physical Exam Narrative: EXAM NARRATIVE: GENERAL/CONSTITUTIONAL - well-appearing. No acute distress. obese Eyes - PERRL, no conjunctival injection ENMT - Atraumatic external nose and ears. Moist mucous membranes NECK - supple. trachea midline CARDIOVASCULAR - regular rate and rhythm. Peripheral pulses 2+ and equal RESPIRATORY -clear to auscultation bilaterally. No retractions or accessory muscle use. ABDOMEN/GI - mild tender diffusely. Nondistended. No tenderness to percussion or evidence of peritonitis MSK - Extremities without obvious deformity or tenderness to palpation SKIN - Warm, Dry NEURO - alert and appropriately oriented. strength and sensation intact. Moves all extremities equally. PSYCH - Appropriate mood and affect Course ED course: - Patient was seen and evaluated by me at bedside - Patient placed on cardiac monitors, IV access obtained - Initial evaluation notable for obese, mildly ill appearance. Tachycardia. - Labs and imaging obtained and reviewed - Fluids given - Labs notable for leukocytosis and transaminitis improving. Renal function improving. The etiology of either are unclear. Trichomonas seen in the urine. - Imaging notable for no acute findings to explain the patient's symptoms - Upon serial reexamination after treatment the patient was mildly improved with resolution of of dizziness - Based on patient history, evaluation, labs, and imaging as interpreted the most likely cause of the patient's condition is unclear - The results of ED evaluation were discussed with the patient including prescriptions and/or symptomatic cares (if applicable) including appropriate and responsible use, followup plan, and return precautions. The patient verbalized understanding and felt safe for discharge. - Patient discharged in satisfactory condition. Vital Signs: Vital signs: Vital Signs Temperature 98.1 F 04/28/21 15:57 Pulse Rate 102 H 04/28/21 23:09 Respiratory Rate 18 04/28/21 23:09 Blood Pressure 135/73 04/28/21 23:09 Pulse Oximetry 96 04/28/21 23:09 MDM - Syncope Medical Records: Attestation: I reviewed the patient's medical records. Lab Data: Attestation: I reviewed the patient's lab results. Labs: Lab Results 04/28/21 04/28/21 04/28/21 Range/Units 19:39 19:39 19:39 WBC 13.6 H (4.0-10.0) 10^3/ uL RBC 5.07 (4.1-5.3) 10^6/u L Hgb 13.8 (11.7-16.6) g/dL Hct 44.6 (42.0-52.0) % MCV 88.0 (80-94) fl MCH 27.2 L (28.0-34.0) pg MCHC 30.9 (30.0-36.0) g/dL RDW 15.0 (12.1-15.1) % Plt Count 312 (130-400) 10^3/c mm MPV 11.5 H (7.4-10.4) fL Neut % (Auto) 49.2 % Lymph % (Auto) 38.9 % Butler % (Auto) 6.2 % Eos % (Auto) 4.2 % Baso % (Auto) 1.0 % Neut # (Auto) 6.70 (1.8-7.7) 10^3/u L Lymph # (Auto) 5.3 H (0.8-4.8) 10^3/u L Butler # (Auto) 0.8 (0.2-0.9) 10^3/u L Eos # (Auto) 0.6 (0.0-0.8) 10^3/u L Baso # (Auto) 0.1 (0.0-0.1) 10^3/u L Nucleated RBC % (a uto) 0 % Nucleated RBCs # 0.0 /100WBC D-Dimer (0-0.59) ug/mIFE U Sodium 133 L (136-145) mmol/L Potassium 4.5 (3.5-5.1) mmol/L Chloride 95 L (98-107) mmol/L Carbon Dioxide 27 (22-29) mmol/L Anion Gap 15.5 (5-19) BUN 20 (6-20) mg/dL Creatinine 1.0 (0.7-1.2) mg/dL GFR Calculation 86.6 L (90-130) mL/min Glucose 233 H (65-115) mg/dL Calculated Osmolal ity 286 (285-295) mOsm/k g Calcium 9.4 (8.5-10.5) mg/dL Total Bilirubin 0.4 (0.15-1.2) mg/dL AST 105 H (0-40) U/L ALT 136 H (0-41) U/L Alkaline Phosphata se 65 (40-130) IU/L Troponin T Baselin e 7 (0-15) ng/L Troponin T 120 Min [place] (0-15) ng/L Delta Troponin T (0-10) ABS# Total Protein 7.5 (6.6-8.7) g/dL Albumin 3.8 (3.5-5.2) g/dL Globulin 3.7 (1.3-4.6) g/dL Lipase 240 H (13-60) U/L TSH (0.27-4.20) uIU/ mL Urine Color (Yellow) Urine Appearance (CLEAR) Urine pH (5-7) Ur Specific Gravit y (1.005-1.030) Urine Protein (Negative) Urine Glucose (UA) (Normal) Urine Ketones (Negative) Urine Blood (Negative) Urine Nitrate (Negative) Urine Bilirubin (Negative) Urine Urobilinogen (Negative) mg/dL Ur Leukocyte Geetha ase (Negative) Urine RBC Urine WBC (0-5) /hpf Ur Squamous Epith Cells (0-5) /hpf Amorphous Sediment Urine Bacteria (NONE) /hpf SARS-CoV-2 Ag (Rap id) (Negative) 04/28/21 04/28/21 04/28/21 Range/Units 19:39 19:39 20:10 WBC (4.0-10.0) 10^3/ uL RBC (4.1-5.3) 10^6/u L Hgb (11.7-16.6) g/dL Hct (42.0-52.0) % MCV (80-94) fl MCH (28.0-34.0) pg MCHC (30.0-36.0) g/dL RDW (12.1-15.1) % Plt Count (130-400) 10^3/c mm MPV (7.4-10.4) fL Neut % (Auto) % Lymph % (Auto) % Butler % (Auto) % Eos % (Auto) % Baso % (Auto) % Neut # (Auto) (1.8-7.7) 10^3/u L Lymph # (Auto) (0.8-4.8) 10^3/u L Butler # (Auto) (0.2-0.9) 10^3/u L Eos # (Auto) (0.0-0.8) 10^3/u L Baso # (Auto) (0.0-0.1) 10^3/u L Nucleated RBC % (a uto) % Nucleated RBCs # /100WBC D-Dimer 0.72 H (0-0.59) ug/mIFE U Sodium (136-145) mmol/L Potassium (3.5-5.1) mmol/L Chloride (98-107) mmol/L Carbon Dioxide (22-29) mmol/L Anion Gap (5-19) BUN (6-20) mg/dL Creatinine (0.7-1.2) mg/dL GFR Calculation (90-130) mL/min Glucose (65-115) mg/dL Calculated Osmolal ity (285-295) mOsm/k g Calcium (8.5-10.5) mg/dL Total Bilirubin (0.15-1.2) mg/dL AST (0-40) U/L ALT (0-41) U/L Alkaline Phosphata se (40-130) IU/L Troponin T Baselin e (0-15) ng/L Troponin T 120 Min [place] (0-15) ng/L Delta Troponin T (0-10) ABS# Total Protein (6.6-8.7) g/dL Albumin (3.5-5.2) g/dL Globulin (1.3-4.6) g/dL Lipase (13-60) U/L TSH 3.40 (0.27-4.20) uIU/ mL Urine Color Yellow (Yellow) Urine Appearance Clear (CLEAR) Urine pH 5 (5-7) Ur Specific Gravit y 1.015 (1.005-1.030) Urine Protein Neg (Negative) Urine Glucose (UA) 4+ H (Normal) Urine Ketones Negative (Negative) Urine Blood Neg (Negative) Urine Nitrate Negative (Negative) Urine Bilirubin Neg (Negative) Urine Urobilinogen Norm (Negative) mg/dL Ur Leukocyte Geetha ase Negative (Negative) Urine RBC Not Reportable Urine WBC 5-10 H (0-5) /hpf Ur Squamous Epith Cells 0-4 H (0-5) /hpf Amorphous Sediment Not Reportable Urine Bacteria Trace (NONE) /hpf SARS-CoV-2 Ag (Rap id) (Negative) 04/28/21 04/28/21 Range/Units 20:52 22:08 WBC (4.0-10.0) 10^3/ uL RBC (4.1-5.3) 10^6/u L Hgb (11.7-16.6) g/dL Hct (42.0-52.0) % MCV (80-94) fl MCH (28.0-34.0) pg MCHC (30.0-36.0) g/dL RDW (12.1-15.1) % Plt Count (130-400) 10^3/c mm MPV (7.4-10.4) fL Neut % (Auto) % Lymph % (Auto) % Butler % (Auto) % Eos % (Auto) % Baso % (Auto) % Neut # (Auto) (1.8-7.7) 10^3/u L Lymph # (Auto) (0.8-4.8) 10^3/u L Butler # (Auto) (0.2-0.9) 10^3/u L Eos # (Auto) (0.0-0.8) 10^3/u L Baso # (Auto) (0.0-0.1) 10^3/u L Nucleated RBC % (a uto) % Nucleated RBCs # /100WBC D-Dimer (0-0.59) ug/mIFE U Sodium (136-145) mmol/L Potassium (3.5-5.1) mmol/L Chloride (98-107) mmol/L Carbon Dioxide (22-29) mmol/L Anion Gap (5-19) BUN (6-20) mg/dL Creatinine (0.7-1.2) mg/dL GFR Calculation (90-130) mL/min Glucose (65-115) mg/dL Calculated Osmolal ity (285-295) mOsm/k g Calcium (8.5-10.5) mg/dL Total Bilirubin (0.15-1.2) mg/dL AST (0-40) U/L ALT (0-41) U/L Alkaline Phosphata se (40-130) IU/L Troponin T Baselin e (0-15) ng/L Troponin T 120 Min [place] 7.84 (0-15) ng/L Delta Troponin T 0.84 (0-10) ABS# Total Protein (6.6-8.7) g/dL Albumin (3.5-5.2) g/dL Globulin (1.3-4.6) g/dL Lipase (13-60) U/L TSH (0.27-4.20) uIU/ mL Urine Color (Yellow) Urine Appearance (CLEAR) Urine pH (5-7) Ur Specific Gravit y (1.005-1.030) Urine Protein (Negative) Urine Glucose (UA) (Normal) Urine Ketones (Negative) Urine Blood (Negative) Urine Nitrate (Negative) Urine Bilirubin (Negative) Urine Urobilinogen (Negative) mg/dL Ur Leukocyte Geetha ase (Negative) Urine RBC Urine WBC (0-5) /hpf Ur Squamous Epith Cells (0-5) /hpf Amorphous Sediment Urine Bacteria (NONE) /hpf SARS-CoV-2 Ag (Rap id) Negative (Negative) EKG Data^: EKG 1: Attestation: I personally reviewed and interpreted this EKG as follows: EKG interpretation date: 04/28/21 EKG interpretation time: 16:10 Prior EKG tracings: available for review Interpretation: Twelve-lead EKG shows a regular sinus rhythm at a rate of 109. UT interval 132, QRS duration 126, QTc 451. Normal axis. Interpretation: Sinus rhythm. Tachycardia, Non specific conduction delay EKG 2: Attestation: I personally reviewed and interpreted this EKG as follows: EKG interpretation date: 04/28/21 EKG interpretation time: 19:20 Prior EKG tracings: available for review Interpretation: Twelve-lead EKG shows a regular sinus rhythm of 106. UT interval 133, QRS duration 105, QTc 436. Normal axis. Interpretation: Sinus rhythm. Tachycardia. EKG 3: Attestation: I personally reviewed and interpreted this EKG as follows: EKG interpretation date: 04/28/21 EKG interpretation time: 22:47 Prior EKG tracings: available for review Interpretation: Twelve-lead EKG shows a regular sinus rhythm at a rate of 100. UT interval 125. QRS duration 110. [id number] Normal axis. Interpretation: Sinus tachycardia. Discharge Plan Discharge Patient Disposition: Home Clinical Impression: Syncope, Diabetes, Elevated liver enzymes, Dizziness, infection, trichomonal Condition: Stable Prescriptions: New metronidazole 500 mg tablet 500 mg PO BID 7 Days Qty: 14 RF: 0 No Action (DME) Blood Glucose Test Strip See Rx Instructions .ROUTE .MEDSUPPLY Qty: 50 RF: 11 (DME) lancets Misc See Rx Instructions .ROUTE .MEDSUPPLY Qty: 100 RF: 11 (DME) blood-glucose meter [Blood Glucose Monitoring] Kit See Rx Instructions .ROUTE .MEDSUPPLY Qty: 1 RF: 0 cyclobenzaprine 5 mg tablet 10 mg PO TID MDD 6 tabs PRN (Reason: muscle spasm) Qty: 30 RF: 1 (DME) pen needle, diabetic [Easy Comfort Pen Emeigh] 31 gauge x 1/4 needle See Rx Instructions .Route Qty: 50 RF: 0 Lantus Solostar U-100 Insulin 100 unit/mL (3 mL) insulin pen 10 unit SUBCUT DAILY 30 Days Qty: 3 RF: 2 ibuprofen 600 mg tablet 600 mg PO Q8H PRN (Reason: Pain) RF: 0 albuterol sulfate [ProAir HFA] 90 mcg/actuation HFA aerosol inhaler 2 puff INHALATION QID PRN (Reason: shortness of breath or wheezing) 30 Days Qty: 18 RF: 5 Aspirin Childrens 81 mg tablet,chewable 81 mg PO DAILY Qty: 30 RF: 0 gabapentin 300 mg capsule 300 mg PO TID PRN (Reason: back pain) 30 Days Qty: 90 RF: 1 lisinopril 10 mg tablet 20 mg PO DAILY RF: 0 Hold Instructions: Doctor's Order potassium chloride 10 mEq capsule, extended release 10 meq PO DAILY Qty: 30 RF: 2 metformin 500 mg tablet 500 mg PO BID 30 Days Qty: 60 RF: 2 hydrochlorothiazide 50 mg tablet 50 mg PO DAILY RF: 0 glipizide 10 mg tablet extended release 24hr 10 mg PO DAILY RF: 0 Discharge Orders: Discharge ED (Routine); Ordered 04/28/21 Ordered By: Sandor Arellano Referrals: Violet Alex MD [Primary Care Provider] - Discharge Diet: Usual diet Discharge Activity: Resume usual activity Patient Instructions: Syncope (ED), Dizziness (ED) Activity Restrictions/Additional Instructions: Thank you for visiting the emergency department. You were seen and evaluated for dizziness and syncope. We see continued abnormalities that you are aware of and your labs however no obvious condition to explain your symptoms. Please follow-up with your primary care provider. For your discussed condition he will be given a prescription for medication. Please take this as prescribed. Please return to the emergency department for anything that you are concerned about and feel needs emergency department evaluation. Coding Level of Care Code ED Keg Varnisher for Santino Ramachandran
--- NOTE | 2021-04-28 19:29 | CTR_ITS ---
PROCEDURE INFORMATION: Exam: CT Head Without Contrast Exam date and time: 04/28/2021 7:29 PM Age: 30 years old Clinical indication: Pain; Dizziness and syncope and collapse; Headache; Additional info: Dizziness syncope TECHNIQUE: Imaging protocol: Computed tomography of the head without contrast. Radiation optimization: All CT scans at this facility use at least one of these dose optimization techniques: automated exposure control; mA and/or kV adjustment per patient size (includes targeted exams where dose is matched to clinical indication); or iterative reconstruction. COMPARISON: No relevant prior studies available. RADIATION DOSE METRICS: Total DLP (mGy-cm): 1059.7 FINDINGS: Brain: Normal. No hemorrhage. Unremarkable white matter. No mass effect. Cerebral ventricles: No ventriculomegaly. Paranasal sinuses: Visualized sinuses are unremarkable. No fluid levels. Mastoid air cells: Visualized mastoid air cells are well aerated. Bones/joints: Unremarkable. No acute fracture. Soft tissues: Unremarkable. CT/CT head wo con* [id number] IMPRESSION: No acute intracranial abnormality. Radiation Dose CTDIVOL = (mGy): DLP = 1059.7 (mGy-cm)
[2021-04-28 19:49] LABS: Basophils # 0.1 10^3/uL (0.0-0.1); Eosinophils # 0.6 10^3/uL (0.0-0.8); Eosinophils % 4.2 %; Hematocrit 44.6 % (42.0-52.0); Hemoglobin 13.8 g/dL (11.7-16.6); Lymphocytes # 5.3 10^3/uL (0.8-4.8); Lymphocytes % 38.9 %; Mean Corpuscular HGB Conc 30.9 g/dL (30.0-36.0); Mean Corpuscular Hemoglobin 27.2 pg (28.0-34.0); Mean Platelet Volume 11.5 fL (7.4-10.4); Monocytes # 0.8 10^3/uL (0.2-0.9); Monocytes % 6.2 %; Neutrophils % 49.2 %; Nucleated Red Blood Cells % 0 %; Platelet Count 312 10^3/cmm (130-400); Red Blood Count 5.07 10^6/uL (4.1-5.3); White Blood Count 13.6 10^3/uL (4.0-10.0)
[2021-04-28] MEDS: lactated ringers 1,000 ML 999 ML IV (20:01)
--- NOTE | 2021-04-28 20:09 | PC.PHAR ---
PT IS NOT VERY SURE OF HIS MEDICATIONS. [facility] 17[facility]54. IT IS NOW 20:11 AND I STILL DON'T HAVE A LIST FROM THEM. I AM GOING BY THE MEDICATION HISTORY AND SOME OF THE PHARMACY LIST.
[2021-04-28 20:25] LABS: Troponin(5th) Baseline 7 ng/L (0-15)
[2021-04-28 20:27] LABS: Alanine Aminotransferase 136 U/L (0-41); Albumin Level 3.8 g/dL (3.5-5.2); Alkaline Phosphatase 65 IU/L (40-130); Anion Gap 15.5 (5-19); Aspartate Amino Transferase 105 U/L (0-40); Blood Urea Nitrogen 20 mg/dL (6-20); Calcium 9.4 mg/dL (8.5-10.5); Carbon Dioxide 27 mmol/L (22-29); Chloride 95 mmol/L (98-107); Globulin 3.7 g/dL (1.3-4.6); Glomerular Filtration Rate 86.6 mL/min (90-130); Glucose 233 mg/dL (65-115); Lipase 240 U/L (13-60); Osmolality Calculated 286 mOsm/kg (285-295); Potassium 4.5 mmol/L (3.5-5.1); Sodium 133 mmol/L (136-145); Total Bilirubin 0.4 mg/dL (0.15-1.2); Total Protein 7.5 g/dL (6.6-8.7)
[2021-04-28 20:56] LABS: D Dimer 0.72 ug/mIFEU (0-0.59)
--- NOTE | 2021-04-28 21:11 | CTR_ITS ---
PROCEDURE INFORMATION: Exam: CTA Chest With Contrast Exam date and time: 04/28/2021 9:11 PM Age: 30 years old Clinical indication: Nausea; Shortness of breath; Prior surgery; Surgery type: Hernia, gb; Additional info: Elevated d dimer, persistent tachy, syncope, abd pain TECHNIQUE: Imaging protocol: Computed tomographic angiography of the chest with contrast. 3D rendering (Not supervised by radiologist): MIP and/or 3D reconstructed images were created by the technologist. Radiation optimization: All CT scans at this facility use at least one of these dose optimization techniques: automated exposure control; mA and/or kV adjustment per patient size (includes targeted exams where dose is matched to clinical indication); or iterative reconstruction. Contrast material: OMNI 350; Contrast volume: 95 ml; Contrast route: INTRAVENOUS (IV); COMPARISON: CT angio chest PE protcl [id number] 03/13/2021 11:22 AM RADIATION DOSE METRICS: Total DLP (mGy-cm): 2577.18 FINDINGS: Pulmonary arteries: Normal. No pulmonary emboli. Aorta: Unremarkable. No aortic aneurysm. No aortic dissection. Great vessels off aortic arch: Retroesophageal course of the right subclavian artery. Lungs: Unremarkable. No consolidation. No masses. Pleural spaces: Unremarkable. No pneumothorax. No pleural effusion. Heart: Unremarkable. No cardiomegaly. No pericardial effusion. Lymph nodes: Unremarkable. No enlarged lymph nodes. Bones/joints: Unremarkable. No acute fracture. Soft tissues: Unremarkable. IMPRESSION: Negative CT angiogram of the chest. No acute abnormality. PROCEDURE INFORMATION: Exam: CT Abdomen And Pelvis With Contrast Exam date and time: 04/28/2021 9:11 PM Age: 30 years old Clinical indication: Nausea; Shortness of breath; Prior surgery; Surgery type: Hernia, gb; Additional info: Elevated d dimer, persistent tachy, syncope, abd pain TECHNIQUE: Imaging protocol: Computed tomography of the abdomen and pelvis with contrast. Radiation optimization: All CT scans at this facility use at least one of these dose optimization techniques: automated exposure control; mA and/or kV adjustment per patient size (includes targeted exams where dose is matched to clinical indication); or iterative reconstruction. Contrast material: OMNI 350; Contrast volume: 95 ml; Contrast route: INTRAVENOUS (IV); COMPARISON: CT angio chest PE protcl [id number] 03/13/2021 11:22 AM RADIATION DOSE METRICS: Total DLP (mGy-cm): 2577.18 FINDINGS: Liver: Normal. No mass. Gallbladder and bile ducts: Cholecystectomy. Nondilated biliary system. Pancreas: Normal. No ductal dilation. Spleen: Normal. No splenomegaly. Adrenal glands: Normal. No mass. Kidneys and ureters: Normal. No hydronephrosis. Stomach and bowel: Unremarkable. No obstruction. No mucosal thickening. Appendix: No evidence of appendicitis. Intraperitoneal space: Unremarkable. No free air. No significant fluid collection. Vasculature: Unremarkable. No abdominal aortic aneurysm. Lymph nodes: Unremarkable. No enlarged lymph nodes. Urinary bladder: Unremarkable as visualized. Reproductive: Unremarkable as visualized. Bones/joints: Unremarkable. No acute fracture. Soft tissues: Unremarkable. CT/CT angio chest w abd pel w con IMPRESSION: Negative for acute abdominopelvic pathology. Radiation Dose CTDIVOL = (mGy): DLP = 2577.18~2577.18 (mGy-cm)
[2021-04-28 21:27] LABS: SARS Covid-2 Antigen Negative (Negative)
[2021-04-28 21:29] LABS: Bilirubin Urine Neg (Negative); Blood Urine Neg (Negative); Ketones Urine Negative (Negative); Nitrate Urine Negative (Negative); Protein Urine Neg (Negative); Specific Gravity, Urine 1.015 (1.005-1.030); Urine Appearance Clear (CLEAR); Urine Color Yellow (Yellow); Urobilinogen Urine Norm (Negative); pH Urine 5 (5-7)
[2021-04-28 21:30] LABS: Add Urine Culture? No; Glucose Urine UA 4+ (Normal); Leukocyte Esterase Urine Negative (Negative); Squamous Epithelial Cell Urine 0-4 /hpf (0-5)
[2021-04-28 21:38] LABS: Bacteria Urine TRACE /hpf
[2021-04-28 22:31] LABS: Troponin 5 2HR 7.84 ng/L (0-15); Troponin 5 2HR Delta 0.84 ABS# (0-10)
--- NOTE | 2021-04-28 22:42 | ECG_ITS ---
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 Measurements Intervals [place] Rate: 100 P: 39 ID: [id number] QRS: 62 QRSD: 110 T: 29 QT: 347 QTc: 448 Interpretive Statements SINUS TACHYCARDIA INCOMPLETE RIGHT BUNDLE BRANCH BLOCK [90+ ms QRS DURATION, TERMINAL R IN V1/V2, 40+ ms S IN I/aVL/V4/V5/V6] Compared to ECG 04/28/2021 19:13:37 Incomplete right bundle-branch block now present Electronically Signed On 04-28-2021 23:06:01 CDT by Jack Honeycutt M.D. [id number]
[2021-04-28 23:09] VITALS: BP 135/73; PULSE 102; RESP 18; O2SAT 96
== END 2021-04-28 23:11 | disposition home or self-care (01) ==
PROVIDERS: Physician Assistant; Emergency Provider Emergency Medicine; PCP Family Medicine
DX: R55 Syncope and collapse (principal); N49.9 Inflammatory disorder of unspecified male genital organ; A59.9 Trichomoniasis, unspecified; R74.01 Elevation of levels of liver transaminase levels; E11.9 Type 2 diabetes mellitus without complications; I10 Essential (primary) hypertension; E66.01 Morbid (severe) obesity due to excess calories; Z68.44 Body mass index [BMI] 60.0-69.9, adult; Z79.84 Long term (current) use of oral hypoglycemic drugs
CPT/HCPCS: 36415; 70450; 71045; 71275; 74177; 80053; 81001; 83690; 84443; 84484; 85025; 85378; 87426; 93005; 96360; 99284; Q9967

== ENCOUNTER → 2021-05-08 09:25 | Outpatient (BNVA) | payer MEDICAID, SELFPAY | PROVIDERS: PCP Family Medicine; Referring Provider Family Medicine; Visit Provider Family Medicine | DX: R30.0 Dysuria (principal) | CPT/HCPCS: 81000; 87086; 87491; 87591 ==

== ENCOUNTER → 2021-05-27 18:00 | Outpatient (BNVA) | payer MEDICAID, SELFPAY | PROVIDERS: PCP Family Medicine; Visit Provider Family Medicine | DX: I10 Essential (primary) hypertension (principal); R74.8 Abnormal levels of other serum enzymes; E11.65 Type 2 diabetes mellitus with hyperglycemia; E87.1 Hypo-osmolality and hyponatremia; G47.33 Obstructive sleep apnea (adult) (pediatric); R06.02 Shortness of breath | CPT/HCPCS: 80053; 80061 ==

== ENCOUNTER → 2021-06-15 15:54 | Outpatient (BNVA) | payer MEDICAID, SELFPAY | PROVIDERS: PCP Family Medicine; Visit Provider Internal Medicine Pulmonary Disease | DX: E66.2 Morbid (severe) obesity with alveolar hypoventilation (principal); J45.30 Mild persistent asthma, uncomplicated | CPT/HCPCS: 82785; 86003 ==

== ENCOUNTER → 2021-09-15 09:35 | Outpatient (BNVA) | payer MEDICAID, SELFPAY | PROVIDERS: PCP Family Medicine; Visit Provider Family Medicine | DX: E11.65 Type 2 diabetes mellitus with hyperglycemia (principal) | CPT/HCPCS: 80053; 83036 ==

== ENCOUNTER 2021-10-16 10:12 | Outpatient (CLI) | payer BC, MEDICAID, SELFPAY ==
--- NOTE | 2021-10-16 10:21 | XR_ITS ---
WS: [id number] XR lumbar spine 2-3V* [id number] REASON FOR EXAM: M51.36 - Other intervertebral disc degeneration, lumbar r... FINDINGS: Mild rotatory scoliosis on the AP view. Straightening of the upper lumbar lordosis on the lateral vie w. Old compression deformities of T12-L2. No focal vertebral body lesion. Narrowing of the intervertebral disc spaces L1 and L2. There is 5 mm of anterolisthesis of L3 in relation to L2. There is 4 mm of anterolisthesis of L4 rela tion to L3. Bilateral spondylolysis at L5 with 7 mm of anterolisthesis of L5 in relation to L1, and 4mm in relati on to L4. XR/XR lumbar spine 2-3V* [id number] IMPRESSION: Multilevel degenerative spondylosis with spondylolysis and spondylolisthesis at L5-S1.
== END 2021-10-16 10:13 | disposition home or self-care (01) ==
PROVIDERS: PCP Family Medicine; Visit Provider Family Medicine
DX: M51.36 Other intervertebral disc degeneration, lumbar region (principal); M47.817 Spondylosis without myelopathy or radiculopathy, lumbosacral region; M43.17 Spondylolisthesis, lumbosacral region
CPT/HCPCS: 72100

== ENCOUNTER → 2022-01-04 15:33 | Outpatient (BNVA) | payer BC, MEDICAID, SELFPAY | PROVIDERS: PCP Family Medicine; Visit Provider Family Medicine | DX: E11.65 Type 2 diabetes mellitus with hyperglycemia (principal) | CPT/HCPCS: 80053; 83036 ==

== ENCOUNTER 2022-02-04 14:10 | Outpatient (CLI) | payer BC, MEDICAID, SELFPAY ==
--- NOTE | 2022-02-04 | USCV_ITS ---
Wiliam Cain Age: 31 Gender: M : 1990 Exam Date: 02/04/2022 14:37 Ordering Phys: Yohana Kelly MD Technologist: Jaylon Means [place] [facility] [place]: Angina BP: 147 / 91 HR: 69 Rhythm: Sinus Technical Quality: Technically difficult study MEASUREMENTS (Male / Female) Normal Values 2D ECHO LV Diastolic Diameter PLAX 4.5 cm 4.2 - 5.9 / 3.9 - 5.3 cm LV Systolic Diameter PLAX 3.2 cm IVS Diastolic Thickness 1.4 cm 0.6 - 1.0 / 0.6 - 0.9 cm IVS Systolic Thickness 2.2 cm LVPW Diastolic Thickness 1.6 cm 0.6 - 1.0 / 0.6 - 0.9 cm LVPW Systolic Thickness 2.1 cm LVOT Diameter 2.0 cm LV Ejection Fraction 2D Teich 56.4 % LV Ejection Fraction MOD 2C 50.1 % LV Ejection Fraction 2C AL 50.4 % LA Diameter 3.4 cm LA Width 3.6 cm LA Height 4.9 cm RA Width 4.4 cm RA Height 5.6 cm Aorta at Sinotubular Diameter 2.7 cm IVC Diameter 1.9 cm M-MODE Aortic Annulus Diameter 3.2 cm LA Ao Ratio MM 1.1 MV E Point Septal Separation 1.3 cm DOPPLER AV Peak Velocity 156.3 cm/s LVOT Peak Velocity 103.0 cm/s AV Area Cont Eq vti 2.3 cm squared AV Area Cont Eq pk 2.1 cm squared MV Area PHT 5.0 cm squared Mitral E to A Ratio 0.8 MV E' Velocity 40.0 cm/s Mitral E to MV E' Ratio 5.4 Mitral E to LV E' Lateral Ratio 5.6 Mitral E to LV E' Septal Ratio 5.2 TR Peak Velocity 121.3 cm/s TR Peak Gradient 5.9 mmHg TR Mean Velocity 82.5 cm/s TR Mean Gradient 3.0 mmHg TR Velocity Time Integral 23.7 cm Right Atrial Pressure 3.0 mmHg Pulmonary Artery Systolic Pressu 8.9 mmHg RV Acceleration Time 0.2 s RV Ejection Time 0.3 s RV AcT/ET 0.5 FINDINGS Left Ventricle Normal left ventricular cavity size and grossly normal systolic function. Left ventricular ejection fraction is estimated at 55 %. This study is inadequate for estimation of regional wall motion abnormality. Right Ventricle Normal right ventricle size and systolic function. RVSP could not be calculated due to incomplete tricuspid regurgitation velocity profile. Right Atrium Normal right atrial size. Left Atrium Normal left atrial size. Mitral Valve Mitral valve not well visualized. No mitral valve stenosis. Trace mitral valve regurgitation. Aortic Valve Aortic valve not well visualized. No aortic valve stenosis. No aortic valve regurgitation. Tricuspid Valve Tricuspid valve not well visualized. Pulmonic Valve Pulmonic valve not well visualized. Pericardium No pericardial effusion. Aorta Normal size aortic root and proximal ascending aorta. IVC Normal sized inferior vena cava. CONCLUSIONS 1. This is a technically difficult study. 2. Normal left ventricular cavity size and grossly normal systolic function. Left ventricular ejection fraction is estimated at 55 %. This study is inadequate for estimation of regional wall motion abnormality. 3. Repeat study with echo contrast is recommended. Yohana Kelly MD (Electronically Signed) Final Date: 10 February 2022 12:52 S
== END 2022-02-04 14:11 | disposition home or self-care (01) ==
PROVIDERS: PCP Family Medicine; Visit Provider Internal Medicine
DX: I20.9 Angina pectoris, unspecified (principal); I25.89 Other forms of chronic ischemic heart disease
CPT/HCPCS: 93306

== ENCOUNTER → 2022-02-10 16:26 | Outpatient (BNVA) | payer BC, MEDICAID, SELFPAY | PROVIDERS: PCP Family Medicine; Visit Provider Emergency Medicine | DX: S60.051A Contusion of right little finger without damage to nail, initial encounter (principal); W23.0XXA Caught, crushed, jammed, or pinched between moving objects, initial encounter | CPT/HCPCS: 73130 ==

== ENCOUNTER → 2022-04-29 14:24 | Outpatient (BNVA) | payer BC, MEDICAID, SELFPAY | PROVIDERS: PCP Family Medicine; Visit Provider Family Medicine | DX: M79.7 Fibromyalgia (principal); M51.36 Other intervertebral disc degeneration, lumbar region; I10 Essential (primary) hypertension; E11.65 Type 2 diabetes mellitus with hyperglycemia; R07.9 Chest pain, unspecified; J45.30 Mild persistent asthma, uncomplicated; E11.9 Type 2 diabetes mellitus without complications | CPT/HCPCS: 80053; 80061; 83036 ==

== ENCOUNTER → 2022-06-02 16:11 | Outpatient (BNVA) | payer BC, MEDICAID, SELFPAY | PROVIDERS: PCP Family Medicine; Visit Provider Emergency Medicine | DX: I10 Essential (primary) hypertension (principal); M10.9 Gout, unspecified | CPT/HCPCS: 80048; 84550 ==

== ENCOUNTER 2022-07-07 15:14 | Emergency (ER) | payer BC, MEDICAID, SELFPAY ==
[2022-07-07] VITALS (24 sets, daily range): BP systolic 110–151; BP diastolic 63–110; PULSE 66–90; RESP 3–24; TEMP 36.9; O2SAT 89–97; BMI 67.3
--- NOTE | 2022-07-07 15:32 | ED_ITS ---
HPI - Chest Pain General: Chief Complaint: Chest Pain Stated Complaint: Dr. Oneill sent for heart problems Time Seen by Provider: 07/07/22 15:32 History of Present Illness: Mr. Cain is a 32-year-old gentleman with complex past medical history including morbid obesity, hypertension, diabetes, obesity hypoventilation syndrome presenting to the emergency department due to chest discomfort. He reports onset of symptoms during exertion yesterday and sat down to rest when he had a syncopal episode. He felt mildly improved however symptoms have since recurred. He endorses chest heaviness with associated exertional worsening, diaphoresis, nausea, and shortness of breath. Intensity symptoms at worst was severe however mildly improved with nitroglycerin and currently moderate. He typically follows with a golf club repairer at [place] in [place] though denies history of prior cardiac intervention. 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 No other specific c hanges in health, exacerbating, or alleviating factors identified. Onset (ago): day(s) Timing of current episode: constant Prior episodes: Yes Onset: during exertion Pain location: substernal Quality: heaviness Associated symptoms: Reports diaphoresis, dyspnea, nausea and syncope Review of Systems General: Reports: 10 or more systems reviewed and unremarkable except in HPI and below Const: Reports: diaphoresis Card: Reports: syncope Resp: Reports: dyspnea GI: Reports: nausea PFSH ED PFSH: Medical History Diabetes Can not tolerate high dose metformin Hypertension Morbid obesity with BMI of 60.0-69.9, adult Surgical History H/O hernia repair S/P cholecystectomy S/P tonsillectomy Family History Other Heart disease Social History Smoking and tobacco status: never smoked Alcohol intake: never Current gender identity: Male Physical Exam Const: COMMON NORMALS: alert GENERAL APPEARANCE: cooperative and well developed HENMT: COMMON NORMALS: normocephalic and atraumatic HEAD & SCALP: normocephalic and atraumatic Eye: COMMON NORMALS: conjunctivae normal CONJUNCTIVA: Yes conjunctivae normal SCLERA: sclerae normal Neck/C-Spine: COMMON NORMALS: supple GENERAL: Yes trachea midline Resp: COMMON NORMALS: clear to auscultation bilaterally EFFORT & INSPECTION: Yes able to speak in complete sentences AUSCULTATION: clear to auscultation bilaterally Cardio: COMMON NORMALS: regular rate and regular rhythm RATE: regular rate RHYTHM: regular rhythm GI: COMMON NORMALS: Soft to palpation PALPATION: Yes Soft to palpation and No Tenderness to palpation present (GI) Extremity: GENERAL: Yes normal exam except as noted and No edema Neuro: COMMON NORMALS: moves all extremities SENSORIUM/ORIENTATION: Yes alert and No Orientation impaired Psych: COMMON NORMALS: mental status grossly normal and Normal thought process present THOUGHT PROCESS: Normal thought process present Course Vital Signs: Vital signs: Vital Signs Temperature 98.4 F 07/07/22 15:21 Pulse Rate 77 07/07/22 20:01 Respiratory Rate 18 07/07/22 20:01 Blood Pressure 139/63 07/07/22 20:01 Pulse Oximetry 93 07/07/22 20:01 Oxygen Delivery Me thod 07/07/22 15:21 MDM - Chest Pain Medical Decision Making 32-year-old gentleman with significant cardiac risk factors and microvascular heart disease presenting to the emergency department due to chest pain. Exam as above, patient is nontoxic. Laboratory studies notable for minimal leukocytosis, hemoglobin normal. Metabolic panel with hypokalemia, renal function preserved, magnesium also low, transaminitis is again noted. 2-hour delta troponin is negative. D-dimer negative. Chest x-ray with no lobar consolidation or pneumothorax. Given syncope and description of pain a CT scan was ordered for aortic protocol however looks like it was run as PE protocol, no obvious dissection or other acute pathology identified. Patient given potassium and magnesium replenishment. Chest pain is improved. Discussed with cardiology, no indication for admission or transfer to [place] at this time. Plan to have patient call in the morning for close follow-up. Most likely etiology of patient's symptoms is likely multifactorial. Certainly some symptoms including syncope may have been related to electrolyte derangement. Prior cath report reviewed. Plan to discharge patient with outpatient order for Holter monitor. The results of ED evaluation were discussed with the patient including prescriptions and/or symptomatic cares (if applicable) including appropriate and responsible use, followup plan, and return precautions. The patient verbalized understanding and felt safe for discharge. Medical Records I reviewed the patient's medical records. Lab Data I reviewed the patient's lab results. : 07/07/22 15:38 07/07/22 15:38 Radiology Impressions Chest X-Ray 07/07/22 15:36 IMPRESSION: No obvious acute consolidation. Suboptimal lung base assessment. Followup including lateral view may be obtained if clinically indicated. Chest CTA 07/07/22 16:26 IMPRESSION: 1. Limited exam due to artifacts. No obvious acute PE or significant lung disease. 2. Coronary calcification. Laboratory Results WBC 12.6 10^3/uL (4.0-10.0) H 07/07/22 15:38 RBC 5.08 10^6/uL (4.1-5.3) 07/07/22 15:38 Hgb 13.4 g/dL (11.7-16.6) 07/07/22 15:38 Hct 42.7 % (42.0-52.0) 07/07/22 15:38 MCV 84.1 fl (80-94) 07/07/22 15:38 MCH 26.4 pg (28.0-34.0) L 07/07/22 15:38 MCHC 31.4 g/dL (30.0-36.0) 07/07/22 15:38 RDW 14.3 % (12.1-15.1) 07/07/22 15:38 Plt Count 335 10^3/cmm (130-400) 07/07/22 15:38 MPV 11.5 fL (7.4-10.4) H 07/07/22 15:38 Neut % (Auto) 51.1 % 07/07/22 15:38 Lymph % (Auto) 38.3 % 07/07/22 15:38 Ju[place] % (Auto) 6.1 % 07/07/22 15:38 Eos % (Auto) 3.3 % 07/07/22 15:38 Baso % (Auto) 0.6 % 07/07/22 15:38 Neut # (Auto) 6.42 10^3/uL (1.8-7.7) 07/07/22 15:38 Lymph # (Auto) 4.8 10^3/uL (0.8-4.8) 07/07/22 15:38 [place] # (Auto) 0.8 10^3/uL (0.2-0.9) 07/07/22 15:38 Eos # (Auto) 0.4 10^3/uL (0.0-0.8) 07/07/22 15:38 Baso # (Auto) 0.1 10^3/uL (0.0-0.1) 07/07/22 15:38 Nucleated RBC % (auto) 0 % 07/07/22 15:38 Nucleated RBCs # 0.0 /100WBC 07/07/22 15:38 D-Dimer 0.51 ug/mIFEU (0-0.59) 07/07/22 15:38 Sodium 137 mmol/L (136-145) 07/07/22 15:38 Potassium 2.8 mmol/L (3.5-5.1) L* 07/07/22 15:38 Chloride 93 mmol/L (98-107) L 07/07/22 15:38 Carbon Dioxide 33 mmol/L (22-29) H 07/07/22 15:38 Anion Gap 13.8 (5-19) 07/07/22 15:38 BUN 19 mg/dL (6-20) 07/07/22 15:38 Creatinine 1.2 mg/dL (0.7-1.2) 07/07/22 15:38 GFR Calculation 69.3 mL/min (90-130) L 07/07/22 15:38 Glucose 140 mg/dL (65-115) H 07/07/22 15:38 Calculated Osmolality 289 mOsm/kg (285-295) 07/07/22 15:38 Calcium 9.7 mg/dL (8.5-10.5) 07/07/22 15:38 Magnesium 1.6 mg/dL (1.7-2.3) L 07/07/22 15:38 Total Bilirubin 0.3 mg/dL (0.15-1.2) 07/07/22 15:38 AST 47 U/L (0-40) H 07/07/22 15:38 ALT 93 U/L (0-41) H 07/07/22 15:38 Alkaline Phosphatase 48 U/L (40-130) 07/07/22 15:38 Troponin T Baseline 10 ng/L (0-15) 07/07/22 15:38 Troponin T 120 Minute 9.43 ng/L (0-15) 07/07/22 17:23 Delta Troponin T -0.57 ABS# (0-10) L 07/07/22 17:23 NT-Pro-B Natriuret Pep 60 pg/mL (0-125) 07/07/22 15:38 Total Protein 8.0 g/dL (6.6-8.7) 07/07/22 15:38 Albumin 4.1 g/dL (3.5-5.2) 07/07/22 15:38 Globulin 3.9 g/dL (1.3-4.6) 07/07/22 15:38 Lipase 33 U/L (13-60) 07/07/22 15:38 Discharge Plan Discharge Patient Disposition: Home Clinical Impression: Chest pain, Syncope and collapse, Acute hypokalemia, Hypomagnesemia Condition: Stable Prescriptions: No Action (DME) blood pressure kit-extra large Kit See Rx Instructions .Route Qty: 1 0RF Rx Instructions: As directed ibuprofen 600 mg tablet 600 mg PO Q8H PRN (Reason: Pain) nitroglycerin 0.4 mg tablet, sublingual 0.4 mg sublingual Q5M PRN (Reason: chest pain) Qty: 30 3RF Rx Instructions: do not exceed 3 doses per episode pregabalin 100 mg capsule 100 mg PO BID 30 Days Qty: 60 2RF carvedilol 25 mg tablet 25 mg PO BID 90 Days Qty: 180 1RF Rx Instructions: must administer with a meal/food furosemide 40 mg tablet 40 mg PO QAM 90 Days Qty: 90 1RF metformin 500 mg tablet 500 mg PO BID 90 Days Qty: 180 1RF Rx Instructions: with food (DME) lancets Misc See Rx Instructions .ROUTE .MEDSUPPLY Qty: 100 11RF Rx Instructions: For use with glucose meter, brand/type per insurance baclofen 20 mg tablet 20 mg PO BEDTIME (DME) Dexcom G6 Sensor Device See Rx Instructions .Route Qty: 3 11RF Rx Instructions: use to check blood sugars 3 times daily albuterol sulfate [ProAir HFA] 90 mcg/actuation HFA aerosol inhaler 2 puff INHALATION QID PRN (Reason: shortness of breath or wheezing) 30 Days Qty: 18 5RF Rx Instructions: 340B (DME) pen needle, diabetic [Easy Comfort Pen Orefield] 31 gauge x 1/4 needle See Rx Instructions .Route Qty: 100 5RF Rx Instructions: As directed, for use with insulin pen, 340B (DME) Dexcom G6 Automatic Dispenser Mechanic Misc See Rx Instructions .Route Qty: 1 0RF Rx Instructions: Check blood sugars 3 times daily (DME) Dexcom G6 Transmitter Device See Rx Instructions .Route Qty: 1 0RF Rx Instructions: As directed Lantus Solostar U-100 Insulin 100 unit/mL (3 mL) insulin pen 12 unit SUBCUT BEDTIME hydrochlorothiazide 50 mg tablet 50 mg PO QAM Rx Instructions: 340B glipizide 10 mg tablet extended release 24hr 10 mg PO QAM isosorbide mononitrate 30 mg tablet extended release 24 hr See Rx Instructions .ROUTE .COMPLEX Rx Instructions: 60mg (2 tabs) AM and 30mg (1 tab) PM allopurinol 100 mg tablet 100 mg PO QAM Aspirin Childrens 81 mg tablet,chewable 81 mg PO QAM dicyclomine 10 mg capsule 10 mg PO TID PRN (Reason: Abdominal Pain) Symbicort 160-4.5 mcg/actuation HFA aerosol inhaler 2 puff inhalation BID potassium chloride 20 mEq tablet extended release 20 meq PO QAM Discharge Orders: Discharge ED (Routine); Ordered 07/07/22 Ordered By: Sandor Arellano Other Ambulatory Orders: ECG holter monitor 7 Days (Routine) Timeframe: 1 Day Facility: [facility] - Location: Radiology Ordered By: Sandor Arellano Referrals: Violet Alex MD [Primary Care Provider] - Discharge Diet: Usual diet Discharge Activity: Increase activity as tolerated Patient Instructions: Chest Pain (ED), Hypokalemia (ED), Syncope (ED), Opioid Safety, Pain Management Activity Restrictions/Additional Instructions: Thank you for visiting the emergency department. You were seen and evaluated for chest pain and syncope. In discussion with cardiology and based on ED evaluation you did not require inpatient management at this time. As discussed you were noted to have low potassium, this was replenished. Low potassium can lead to cardiac arrhythmias and other medical conditions. We recommend continued supplementation and recheck of your potassium level within 3 to 5 days to ensure that it remains normal. Please follow-up with cardiology and your primary care provider. Return to the emergency department for worsening or recurrent symptoms or anythi ng else that you are concerned about a feel needs emergency department evaluation. Coding Level of Care Code ED [facility] for Santino Ramachandran
--- NOTE | 2022-07-07 15:36 | ECG_ITS ---
[facility] Test Date: 2022-07-07 Pat Name: Wiliam Cain Department: Room: Gender: Male Residential Treatment Staff: : 1990 Requested By: Sandor Arellano Order Number: [id number] Hayes MD: Yohana Kelly M.D. Measurements Intervals [place] Rate: 82 P: 25 [place]: 162 QRS: 39 QRSD: 114 T: 3 QT: 395 QTc: 462 Interpretive Statements SINUS RHYTHM INCOMPLETE RIGHT BUNDLE BRANCH BLOCK [90+ ms QRS DURATION, TERMINAL R IN V1/V2, 40+ ms S IN I/aVL/V4/V5/V6] NONSPECIFIC T-WAVE ABNORMALITY Compared to ECG 04/28/2021 22:46:58 T-wave abnormality now present Sinus tachycardia no longer present Electronically Signed On 07-07-2022 16:25:42 CDT by Yohana Kelly M.D. [id number]
--- NOTE | 2022-07-07 15:36 | XRR_ITS ---
PROCEDURE INFORMATION: Exam: XR Chest Exam date and time: 07/07/2022 3:45 PM Age: 32 years old Clinical indication: Pain; Angina pectoris; Additional info: Cp TECHNIQUE: Imaging protocol: Radiologic exam of the chest. Views: 1 view. COMPARISON: CR XR chest 1V portable [id number] 04/28/2021 5:30 PM FINDINGS: Lungs: The lung bases are suboptimally assessed due to technique however the upper lungs are clear of focal consolidation. Pleural spaces: Unremarkable. No pleural effusion. No pneumothorax. Heart/Mediastinum: Cardiac silhouette appears normal in size. No obvious vascular congestion. Bones/joints: No acute osseous findings. Other findings: Single view was submitted. XR/XR chest 1V portable [id number] IMPRESSION: No obvious acute consolidation. Suboptimal lung base assessment. Followup including lateral view may be obtained if clinically indicated.
[2022-07-07] MEDS: aspirin 81 mg Chew Tablet 324 MG PO (15:49)
[2022-07-07 15:54] LABS: Basophils # 0.1 10^3/uL (0.0-0.1); Basophils % 0.6 %; Eosinophils # 0.4 10^3/uL (0.0-0.8); Eosinophils % 3.3 %; Hematocrit 42.7 % (42.0-52.0); Hemoglobin 13.4 g/dL (11.7-16.6); Lymphocytes # 4.8 10^3/uL (0.8-4.8); Lymphocytes % 38.3 %; Mean Corpuscular HGB Conc 31.4 g/dL (30.0-36.0); Mean Corpuscular Hemoglobin 26.4 pg (28.0-34.0); Mean Corpuscular Volume 84.1 fl (80-94); Mean Platelet Volume 11.5 fL (7.4-10.4); Monocytes # 0.8 10^3/uL (0.2-0.9); Monocytes % 6.1 %; Neutrophils # 6.42 10^3/uL (1.8-7.7); Neutrophils % 51.1 %; Nucleated Red Blood Cells % 0 %; Platelet Count 335 10^3/cmm (130-400); Red Blood Count 5.08 10^6/uL (4.1-5.3); Red Cell Distribution Width 14.3 % (12.1-15.1); White Blood Count 12.6 10^3/uL (4.0-10.0)
[2022-07-07 16:09] LABS: D Dimer 0.51 ug/mIFEU (0-0.59)
[2022-07-07 16:18] LABS: Troponin(5th) Baseline 10 ng/L (0-15)
--- NOTE | 2022-07-07 16:26 | CTR_ITS ---
PROCEDURE INFORMATION: Exam: CTA Chest With Contrast Exam date and time: 07/07/2022 4:59 PM Age: 32 years old Clinical indication: Pain; Chest pressure; Additional info: Cp, syncope TECHNIQUE: Imaging protocol: Computed tomographic angiography of the chest with contrast. 3D rendering (Not supervised by radiologist): MIP and/or 3D reconstructed images were created by the technologist. Radiation optimization: All CT scans at this facility use at least one of these dose optimization techniques: automated exposure control; mA and/or kV adjustment per patient size (includes targeted exams where dose is matched to clinical indication); or iterative reconstruction. Contrast material: OMNIPAQUE 350; Contrast volume: 125 ml; Contrast route: INTRA-ARTICULAR (ARTHROGRAM); COMPARISON: CT angio chest w abd pel w con 04/28/2021 9:25 PM RADIATION DOSE METRICS: Total DLP (mGy-cm): 1558.87 FINDINGS: Pulmonary arteries: There is no pulmonary embolism in the central-proximal segmental branches. Assessment of the peripheral subsegmental small branches is limited. Great vessels off aortic arch: Aberrant right subclavian artery. No aortic aneurysm or dissection. Aorta: See Great vessels off aortic arch finding. Lungs: Unremarkable. No consolidation. No masses. Pleural spaces: Unremarkable. No pneumothorax. No pleural effusion. Heart: Normal heart size with no obvious coronary calcification. Lymph nodes: Unremarkable. No enlarged lymph nodes. Liver: Probable hepatic steatosis. Bones/joints: No acute fracture. Soft tissues: Images are somewhat degraded due to external streak artifacts arising from patient's arm(s). Motion artifacts are also present. CT/CT angio chest [id number] IMPRESSION: 1. Limited exam due to artifacts. No obvious acute PE or significant lung disease. 2. Coronary calcification.
[2022-07-07 16:28] LABS: Alanine Aminotransferase 93 U/L (0-41); Albumin Level 4.1 g/dL (3.5-5.2); Alkaline Phosphatase 48 U/L (40-130); Anion Gap 13.8 (5-19); Aspartate Amino Transferase 47 U/L (0-40); Blood Urea Nitrogen 19 mg/dL (6-20); Calcium 9.7 mg/dL (8.5-10.5); Carbon Dioxide 33 mmol/L (22-29); Chloride 93 mmol/L (98-107); Globulin 3.9 g/dL (1.3-4.6); Glomerular Filtration Rate 69.3 mL/min (90-130); Glucose 140 mg/dL (65-115); Lipase 33 U/L (13-60); NT Pro B Type Natriuretic Pept 60 pg/mL (0-125); Osmolality Calculated 289 mOsm/kg (285-295); Sodium 137 mmol/L (136-145); Total Bilirubin 0.3 mg/dL (0.15-1.2)
[2022-07-07 16:33] LABS: Potassium 2.8 mmol/L (3.5-5.1)
[2022-07-07] MEDS: potassium chloride ER 20 mEq Tablet 40 MEQ PO (16:51)
[2022-07-07] MEDS: iohexol 350 mg/mL 500 mL Btl (per mL) IV (17:14)
[2022-07-07 17:23] LABS: Magnesium 1.6 mg/dL (1.7-2.3)
[2022-07-07] MEDS: lidocaine 1% 5 ML in potassium chloride premix 100 ML 50 ML IV (17:25)
[2022-07-07 18:00] LABS: Troponin 5 2HR 9.43 ng/L (0-15)
[2022-07-07 18:17] LABS: Troponin 5 2HR Delta -0.57 ABS# (0-10)
--- NOTE | 2022-07-07 18:51 | PC.NURSE ---
report given to JOSE Mayes
[2022-07-07] MEDS: magnesium sulfate premix 2 GM/50 ML PIGGYBACK IV (19:00)
== END 2022-07-07 20:37 | disposition home or self-care (01) ==
PROVIDERS: Emergency Provider Emergency Medicine; PCP Family Medicine
DX: R07.9 Chest pain, unspecified (principal); R55 Syncope and collapse; E87.6 Hypokalemia; E83.42 Hypomagnesemia; Z79.84 Long term (current) use of oral hypoglycemic drugs; Z79.82 Long term (current) use of aspirin; Z79.4 Long term (current) use of insulin; E11.9 Type 2 diabetes mellitus without complications; I10 Essential (primary) hypertension
CPT/HCPCS: 71045; 71275; 80053; 83690; 83735; 83880; 84484; 85025; 85378; 93005; 96365; 96366; 96367; 99285; J3475; J3480; Q9967

== ENCOUNTER 2022-07-09 09:33 | Outpatient (CLI) | payer BC, MEDICAID, SELFPAY ==
--- NOTE | 2022-07-09 11:00 | CT_ITS ---
WS: [id number] Exam: CT abdomen pelvis w con* [id number] Date/Time of Exam: 07/09/2022 9:46 AM Reason For Exam: R59.0 - Localized enlarged lymph nodes DLP: 1341.[address] scans at [facility] use at least one of these dose optimization techniques: automated e xposure control; mA and/or kV adjustment per patient size (includes targeted exams where dose is matc hed to clinical indication); or iterative reconstruction. Comparison 04/28/2021. Lower lung zones are clear. The liver, spleen, stomach, and pancreas appear normal. The gallbladder i s surgically absent. The abdominal aorta is normal in caliber. Normal adrenal glands and kidneys. The portal vein and IVC are patent. No free air. No lymphadenopathy. Unremarkable small bowel loops. No significant large bowel abnormality seen. No mass or lymphadenopathy in the pelvis. Intact urinary bl adder. No sign of acute appendix. No destructive bone lesions are seen. No significant abdominal wall defect noted. CT/CT abdomen pelvis w con* [id number] IMPRESSION: 1. No mass, lymphadenopathy or acute finding in the abdomen or pelvis. No mckeon e since prior exam.
[2022-07-09] MEDS: iohexol 350 mg/mL 100 mL Btl PO (12:11)
[2022-07-09] MEDS: iohexol 350 mg/mL 100 mL Btl IV (12:11)
== END 2022-07-09 09:34 | disposition home or self-care (01) ==
LOC: RAD 09:34
PROVIDERS: PCP Family Medicine; Visit Provider Emergency Medicine
DX: R59.0 Localized enlarged lymph nodes (principal)
CPT/HCPCS: 74177

== ENCOUNTER 2022-08-03 11:10 | Outpatient (CLI) | payer BC, MEDICAID, SELFPAY ==
--- NOTE | 2022-08-03 11:00 | USCV_ITS ---
Wiliam Cain Age: 32 Gender: M : 1990 Exam Date: 08/03/2022 11:59 Ordering Phys: Yohana Kelly MD ([email or web address]) Technologist: Jaylon Means Exam Location: [facility] – [place] Indication: Exertional shortness of breath BP: 139 / 63 HR: 90 Rhythm: Sinus Technical Quality: Technically difficult study MEASUREMENTS (Male / Female) Normal Values 2D ECHO LV Diastolic Diameter PLAX 5.1 cm 4.2 - 5.9 / 3.9 - 5.3 cm LV Systolic Diameter PLAX 3.7 cm IVS Diastolic Thickness 1.4 cm 0.6 - 1.0 / 0.6 - 0.9 cm IVS Systolic Thickness 1.5 cm LVPW Diastolic Thickness 1.5 cm 0.6 - 1.0 / 0.6 - 0.9 cm LVPW Systolic Thickness 2.1 cm LVOT Diameter 2.7 cm LV Ejection Fraction 2D Teich 53.5 % LV Ejection Fraction MOD 2C 62.0 % LV Ejection Fraction 2C AL 61.6 % LA Diameter 4.2 cm LA Width 2.8 cm LA Height 3.7 cm RA Width 3.2 cm RA Height 3.4 cm Aorta at Sinotubular Diameter 2.9 cm IVC Diameter 1.9 cm M-MODE Aortic Annulus Diameter 4.0 cm LA Ao Ratio MM 1.1 MV E Point Septal Separation 0.8 cm DOPPLER AV Peak Velocity 114.0 cm/s LVOT Peak Velocity 81.0 cm/s AV Area Cont Eq vti 4.6 cm squared AV Area Cont Eq pk 4.2 cm squared MV Peak Velocity 89.0 cm/s MV Area PHT 5.1 cm squared Mitral E to A Ratio 0.8 MV E' Velocity 60.0 cm/s TR Peak Velocity 200.0 cm/s TR Peak Gradient 16.0 mmHg TR Mean Velocity 140.8 cm/s TR Mean Gradient 9.1 mmHg TR Velocity Time Integral 35.8 cm Right Atrial Pressure 3.0 mmHg Pulmonary Artery Systolic Pressu 19.0 mmHg PV Peak Velocity 87.7 cm/s RV Acceleration Time 0.1 s RV Ejection Time 0.2 s RV AcT/ET 0.5 FINDINGS Left Ventricle Normal left ventricular cavity size. Normal left ventricular systolic function. Left ventricular ejection fraction is estimated at 65 %. No regional wall motion abnormalities. Abnormal relaxation pattern on mitral inflow. Right Ventricle Normal right ventricular size and systolic function. Right ventricular systolic pressure 28 mmHg. Right Atrium Right atrium not well visualized. Left Atrium Left atrium not well visualized. Mitral Valve Mitral valve not well visualized. No mitral valve stenosis. Aortic Valve Aortic valve not well visualized. No aortic valve stenosis. No aortic valve regurgitation. Tricuspid Valve Tricuspid valve not well visualized. Trace tricuspid valve regurgitation. Pulmonic Valve Pulmonic valve not well visualized. No pulmonary valve stenosis. No significant pulmonary valve regurgitation. Pericardium No pericardial effusion. Aorta Normal size aortic root and proximal ascending aorta. IVC Inferior vena cava not visualized. CONCLUSIONS 1. This is a limited study with [employer]. 2. Normal left ventricular cavity size and systolic function. Left ventricular ejection fraction is estimated at 65 %. No regional wall motion abnormalities. Abnormal relaxation pattern on mitral inflow. 3. Normal right ventricular size and systolic function. 4. Pulmonary pressure estimated at 28 mmHg. 5. Direct comparison to previous study is not possible due to technically difficult study. Yohana Kelly MD (Electronically Signed) Final Date: 04 August 2022 10:01 S
[2022-08-03] MEDS: perflutren protein-a microsphr 0.22 mg/mL SDV 3 mL IV (12:34)
== END 2022-08-03 11:11 | disposition home or self-care (01) ==
LOC: RAD 11:10
PROVIDERS: PCP Family Medicine; Visit Provider Internal Medicine Cardiovascular Disease
DX: R06.02 Shortness of breath (principal)
CPT/HCPCS: 93325; C8924; Q9956

== ENCOUNTER → 2022-08-19 14:12 | Outpatient (BNVA) | payer BC, MEDICAID, SELFPAY | PROVIDERS: PCP Family Medicine; Visit Provider Family Medicine | DX: E11.65 Type 2 diabetes mellitus with hyperglycemia (principal); R10.31 Right lower quadrant pain; I10 Essential (primary) hypertension; R06.02 Shortness of breath; R07.9 Chest pain, unspecified; M51.36 Other intervertebral disc degeneration, lumbar region; F41.9 Anxiety disorder, unspecified; E83.42 Hypomagnesemia; E87.6 Hypokalemia; Z00.00 Encounter for general adult medical examination without abnormal findings; Z28.21 Immunization not carried out because of patient refusal; Z13.220 Encounter for screening for lipoid disorders; Z13.6 Encounter for screening for cardiovascular disorders; M79.7 Fibromyalgia | CPT/HCPCS: 80048; 83036; 83735; 83880 ==

== ENCOUNTER → 2022-10-20 09:57 | Outpatient (BNVA) | payer BC, MEDICAID, SELFPAY | PROVIDERS: PCP Family Medicine; Visit Provider Emergency Medicine | DX: R68.89 Other general symptoms and signs (principal); J00 Acute nasopharyngitis [common cold]; J40 Bronchitis, not specified as acute or chronic | CPT/HCPCS: 87400; 87426 ==

== ENCOUNTER → 2022-11-11 15:02 | Outpatient (BNVA) | payer BC, MEDICAID, SELFPAY | PROVIDERS: PCP Family Medicine; Visit Provider Family Medicine | DX: J45.30 Mild persistent asthma, uncomplicated (principal); M51.36 Other intervertebral disc degeneration, lumbar region; F41.1 Generalized anxiety disorder; E11.65 Type 2 diabetes mellitus with hyperglycemia; M79.7 Fibromyalgia; G25.81 Restless legs syndrome; E11.9 Type 2 diabetes mellitus without complications; I10 Essential (primary) hypertension; E87.6 Hypokalemia; N18.2 Chronic kidney disease, stage 2 (mild) | CPT/HCPCS: 80053; 83036; 83540; 85025 ==

== ENCOUNTER 2023-01-13 13:14 | Outpatient (CLI) | payer BC, MEDICAID, SELFPAY ==
--- NOTE | 2023-01-13 13:25 | XR_ITS ---
WS: [id number] Lumbar spine, 3 views, 01/13/2023 Clinical Data: M51.36 - Other intervertebral disc degeneration, lumbar r... Comparison: Lumbar spine, 10/16/2021 Findings: No compression fractures are seen. No disc space narrowing is seen. There is a 0.3 cm retrolisthesis of L4 on L5. There is degenerative change of the L1-L3 vertebral bodies. The transverse processes and SI joints are normal. There is a spondylolysis at L5-S1 but not a significant spondylolisthesis. There are clips in the rig ht upper quadrant from a cholecystectomy. XR/XR lumbar spine 2-3V* [id number] Impression: 1. Minimal 0.3 cm retrolisthesis of L4 and L5. 2. Degenerative change of the L1-L3 vertebral bodies. 3. 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
== END 2023-01-13 13:15 | disposition home or self-care (01) ==
LOC: RAD 13:18
PROVIDERS: PCP Family Medicine; Visit Provider Family Medicine
DX: M51.36 Other intervertebral disc degeneration, lumbar region (principal); M43.07 Spondylolysis, lumbosacral region
CPT/HCPCS: 72100

== ENCOUNTER → 2023-01-27 15:11 | Outpatient (BNVA) | payer BC, MEDICAID, SELFPAY | PROVIDERS: PCP Family Medicine; Visit Provider Internal Medicine Cardiovascular Disease | DX: R07.9 Chest pain, unspecified (principal); I10 Essential (primary) hypertension; E11.65 Type 2 diabetes mellitus with hyperglycemia; R74.8 Abnormal levels of other serum enzymes; Z68.44 Body mass index [BMI] 60.0-69.9, adult; I45.19 Other right bundle-branch block; E66.2 Morbid (severe) obesity with alveolar hypoventilation | CPT/HCPCS: 93005 ==

== ENCOUNTER 2023-02-02 12:43 | Outpatient (CLI) | payer BC, MEDICAID, SELFPAY ==
--- NOTE | 2023-02-02 13:00 | CT_ITS ---
WS: [id number] CT LUMBAR SPINE, noncontrast. HISTORY: Intervertebral disc degeneration. Lumbar pain. TECHNIQUE: Contiguous 2.0 mm axial imaging are performed. Sagittal and coronal reformats are submitte d and reviewed. All CT scans at [facility] use at least one of these dose optimization techni ques: automated exposure control; mA and/or kV adjustment per patient size (includes targeted exams w here dose is matched to clinical indication); or iterative reconstruction. IV contrast: None DLP: 2328.11 mGy.cm COMPARISON: Radiographs 01/13/2023 Significantly compromised study by body habitus. Posterior lumbar alignment appears within normal limits. Disc spaces are mildly narrowed. No fracture . L1-2: Osteophytic ridging. Larger osteophyte extends into the RIGHT paracentral proximal foraminal. S mall osteophyte on the LEFT. The extent of stenosis is difficult to determine. Moderate encroachment upon the RIGHT traversing L2 nerve root. Moderate central stenosis. L2-3: Osteophytic ridging. LEFT paracentral osteophyte. There is at least mild central and foraminal stenosis. L3-4: No high-grade stenosis. L4-5: Osteophytic ridging. Large central to RIGHT paracentral osteophyte. Osteophyte contacts the gagan tral thecal sac and the traversing RIGHT L5 nerve root. Mild central, subarticular recess and RIGHT f oraminal stenosis. Osteophyte extends into the RIGHT foramen also. L5-S1: Osteophytic ridging and moderate facet arthritis. No stenosis. Visualized retroperitoneum is normal. CT/CT lumbar spine wo con* [id number] IMPRESSION: 1. Quality of this examination is significantly compromised by body habitus. 2. Large RIGHT paracentral osteophyte encroaches upon the RIGHT traversing L2 nerve root. Moderate central stenosis at L1-2. 3. LEFT paracentral osteophyte L2-3. Mild central and foraminal stenosis. 4. Large central to RIGHT paracentral osteophyte at L4-5. Significant contact on the ventral thecal sac and traversing RIGHT L5 nerve root. Mild central, sub articular recess and foraminal stenosis. 5. Moderate facet arthritis. No stenosis.
== END 2023-02-02 12:44 | disposition home or self-care (01) ==
PROVIDERS: PCP Family Medicine; Visit Provider Family Medicine
DX: M51.36 Other intervertebral disc degeneration, lumbar region (principal); M48.061 Spinal stenosis, lumbar region without neurogenic claudication; M47.816 Spondylosis without myelopathy or radiculopathy, lumbar region; M25.78 Osteophyte, vertebrae; R93.7 Abnormal findings on diagnostic imaging of other parts of musculoskeletal system
CPT/HCPCS: 72131

== ENCOUNTER → 2023-02-24 14:30 | Outpatient (BNVA) | payer BC, MEDICAID, SELFPAY | PROVIDERS: PCP Family Medicine; Referring Provider Anesthesiology Pain Medicine; Visit Provider Physician Assistant | DX: M54.16 Radiculopathy, lumbar region (principal) | CPT/HCPCS: 72110 ==

== ENCOUNTER → 2023-05-26 15:09 | Outpatient (BNVA) | payer BC, MEDICAID, SELFPAY | PROVIDERS: PCP Family Medicine; Visit Provider Family Medicine | DX: M79.7 Fibromyalgia (principal); M51.36 Other intervertebral disc degeneration, lumbar region; E11.65 Type 2 diabetes mellitus with hyperglycemia; F41.1 Generalized anxiety disorder; I10 Essential (primary) hypertension; E11.9 Type 2 diabetes mellitus without complications | CPT/HCPCS: 80053; 80061; 83036 ==

== ENCOUNTER 2024-02-28 09:59 | Emergency (ER) | payer BC, MEDICAID, SELFPAY ==
--- NOTE | 2024-02-28 10:02 | ECG_ITS ---
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 Measurements Intervals [place] Rate: 87 P: 15 NH: 136 QRS: 64 QRSD: 104 T: 32 QT: 377 QTc: 455 Interpretive Statements SINUS RHYTHM INCOMPLETE RIGHT BUNDLE BRANCH BLOCK [90+ ms QRS DURATION, TERMINAL R IN V1/V2, 40+ ms S IN I/aVL/V4/V5/V6] Compared to ECG 01/27/2023 15:17:23 No significant changes Electronically Signed On 02-28-2024 23:46:20 CDT by Jorge Russell M.D. [id number] f
[2024-02-28 10:06] VITALS: BP 143/92; PULSE 77; RESP 18; TEMP 37.1; O2SAT 99
[2024-02-28 11:20] LABS: Basophils % 0.5 %; Eosinophils # 0.2 10^3/uL (0.0-0.8); Hematocrit 45.2 % (37-53); Lymphocytes # 2.7 10^3/uL (0.8-4.8); Lymphocytes % 47.6 %; Mean Corpuscular HGB Conc 30.5 g/dL (30-55); Mean Corpuscular Hemoglobin 25.6 pg (27-33); Mean Corpuscular Volume 83.9 fl (82-101); Monocytes # 0.4 10^3/uL (0.2-0.9); Monocytes % 7.3 %; Neutrophils # 2.31 10^3/uL (1.8-7.7); Neutrophils % 40.1 %; Nucleated Red Blood Cells % 0 %; Platelet Count 197 10^3/cmm (157-399); Red Blood Count 5.39 10^6/uL (3.85-5.65); White Blood Count 5.76 10^3/uL (3.29-11.43)
[2024-02-28 11:37] LABS: Alanine Aminotransferase 112 U/L (0-41); Albumin Level 3.7 g/dL (3.5-5.2); Alkaline Phosphatase 48 U/L (40-130); Anion Gap 15.3 (5-19); Aspartate Amino Transferase 85 U/L (0-40); Blood Urea Nitrogen 10 mg/dL (6-20); Calcium 8.5 mg/dL (8.5-10.5); Carbon Dioxide 25 mmol/L (22-29); Chloride 98 mmol/L (98-107); Creatinine Clr Calc Pharmacy 188.6383; Globulin 3.5 g/dL (1.3-4.6); Glomerular Filtration Rate 76.2 mL/min (90-130); Glucose 272 mg/dL (65-115); Lipase 45 U/L (13-60); Osmolality Calculated 287 mOsm/kg (285-295); Potassium 4.3 mmol/L (3.5-5.1); Sodium 134 mmol/L (136-145); Total Bilirubin 0.3 mg/dL (0.15-1.2); Total Protein 7.2 g/dL (6.6-8.7)
[2024-02-28 12:13] LABS: Add Urine Microscopic? NO; Charge for UA Resulting for Rev
[2024-02-28 12:19] LABS: Bilirubin Urine Neg (Negative); Blood Urine Neg (Negative); Glucose Urine UA Norm (Normal); Ketones Urine Negative (Negative); Leukocyte Esterase Urine Negative (Negative); Nitrate Urine Negative (Negative); Protein Urine Neg (Negative); Urine Appearance Clear (CLEAR); Urine Color Yellow (Yellow); Urobilinogen Urine Norm (Negative); pH Urine 5 (5-7)
--- NOTE | 2024-02-28 13:52 | XR_ITS ---
WS: [id number] Exam: XR chest 1V portable [id number] Date/Time of Exam: 02/28/2024 1:52 PM Reason For Exam: chest pain Comparison 07/07/2022. Lungs are fully inflated and clear. Heart size top limits normal. No pleural effusion. Bony structure s are intact. The mediastinum is normal in contour. XR/XR chest 1V portable [id number] IMPRESSION: 1. No acute cardiopulmonary finding.
--- NOTE | 2024-02-28 13:54 | ECG_ITS ---
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 Measurements Intervals [place] Rate: 81 P: 12 RI: 142 QRS: 40 QRSD: 106 T: 28 QT: 386 QTc: 449 Interpretive Statements SINUS RHYTHM INCOMPLETE RIGHT BUNDLE BRANCH BLOCK [90+ ms QRS DURATION, TERMINAL R IN V1/V2, 40+ ms S IN I/aVL/V4/V5/V6] Compared to ECG 02/28/2024 10:02:57 No significant changes Electronically Signed On 02-28-2024 23:47:41 CDT by Jorge Russell M.D. [id number]
[2024-02-28 14:08] VITALS: BP 129/79; PULSE 81; RESP 16; O2SAT 94
--- NOTE | 2024-02-28 14:16 | W.ED.CHESTPA ---
HPI - Chest Pain General: Chief Complaint: Nausea/Vomiting/Diarrhea Stated Complaint: vomiting, heart burn Time Seen by Provider: 02/28/24 10:32 Source: patient Mode of arrival: ambulatory Limitations: no limitations History of Present Illness: Patient is a 33-year-old male with a history of HTN, DM-2, morbid obesity, degenerative disc disease and obesity hypoventilation syndrome presented for evaluation of chest discomfort.? Patient states around 6:30 AM while driving he began developing left-sided chest pain. Patient states he ended up vomiting approximately 3 times. He states he got diaphoretic. Upon arrival chest pain has improved and he is rating at minimal. He does have a history of previous chest pains. 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 He has no cardiac stents. MD complaint: chest pain Onset (ago): hour(s) Timing of current episode: other (improving) Prior episodes: Yes Onset: during rest (patient was driving) Pain location: left chest Pain radiation: none Severity: moderate Quality: tightness and heaviness Relieving factors: nothing Exacerbating factors: nothing Associated symptoms: Reports nausea and vomiting; Deny abdominal pain, dyspnea, fever(s), palpitations or syncope Treatment prior to arrival: none Risk Factors: Coronary artery disease risk factors: hyperlipidemia and hypertension Thoracic aortic dissection risk factors: none Review of Systems Const: Denies: fever(s), chills, body aches, fatigue or malaise Card: Reports: chest pain; Denies: palpitations, irregular heart rhythm, edema, swelling of feet/ankles, lightheadedness, syncope, pre-syncope, dyspnea on exertion, orthopnea, leg pain with exertion or acrocyanosis Resp: Denies: dyspnea, wheezing, pain on inspiration, hemoptysis or chest congestion GI: Reports: nausea and vomiting; Denies: abdominal pain or diarrhea : Denies: flank pain, difficulty urinating, dysuria, urinary frequency, urinary urgency or urinary hesitancy Musc: Denies: neck pain, back pain, extremity pain or joint pain Skin/Breast: Denies: rash Neuro: Denies: headache(s), numbness in extremities, weakness in extremities, sensory changes or dizziness PFSH ED PFSH: Medical History Morbid obesity with BMI of 60.0-69.9, adult Diabetes Can not tolerate high dose metformin Hypertension Surgical History S/P tonsillectomy S/P cholecystectomy H/O hernia repair Family History Other Heart disease Social History Smoking and tobacco/nicotine status: never used tobacco/nicotine Alcohol intake: never Substance/Drug Use: never Current gender identity: Male Physical Exam Const: COMMON NORMALS: no acute distress, patient oriented x3, no limitations and alert GENERAL APPEARANCE: cooperative NUTRITIONAL APPEARANCE: obese morbidly obese (BMI is 68.6) ORIENTATION/CONSCIOUSNESS: Yes awake, Yes oriented to person, Yes oriented to place and Yes oriented to time Chest: COMMONS NORMALS: normal inspection of the chest and normal palpation of entire chest wall Resp: COMMON NORMALS: normal respiratory effort and clear to auscultation bilaterally AUSCULTATION: clear to auscultation bilaterally Cardio: COMMON NORMALS: regular rate and regular rhythm RATE: regular rate RHYTHM: regular rhythm GI: COMMON NORMALS: Normal to inspection, nondistended, normoactive bowel sounds present, Soft to palpation and non-tender PALPATION: Yes Soft to palpation : COMMON NORMALS: Yes no CVA tenderness BLADDER/KIDNEY EXAM: Yes no CVA tenderness Back/Pelvis: COMMON NORMALS: no CVA tenderness and thoracic and lumbar spine normal to inspection Extremity: GENERAL: Yes normal exam except as noted Neuro: KEVYN COMA SCALE: document GCS findings [place] coma scale eye opening: Spontaneous Kevyn coma scale verbal response: Orientated Mos[place] coma scale motor response: Obey commands Kevyn coma scale total score: 15 COMMON NORMALS: patient oriented x3, moves all extremities, no focal motor deficits and no sensory deficits noted SENSORIUM/ORIENTATION: Yes alert, Yes oriented to person, Yes oriented to place and Yes oriented to time Skin: COMMON NORMALS: no rashes or lesions noted GENERAL SKIN EXAM: no rashes or lesions noted Course Vital Signs: Vital signs: Vital Signs Temperature 98.8 F 02/28/24 10:06 Pulse Rate 82 02/28/24 15:14 Respiratory Rate 14 02/28/24 15:14 Blood Pressure 119/80 02/28/24 15:14 Pulse Oximetry 93 02/28/24 15:14 Oxygen Delivery Me thod Room Air 02/28/24 15:14 MDM - Chest Pain Medical Decision Making Patient has been chest pain-free throughout his ED stay. Vital signs are stable. His baseline and repeat EKGs are nonischemic. His blood work overall is unremarkable. Baseline and repeat troponins are unremarkable. CXR showing no acute findings. Patient states he does have a follow-up with cardiology at [facility] in 2 weeks. Recommend to keep this appointment. He can follow-up with PCP in the meantime if needed. Return to ED precautions given. Medical Records I reviewed the patient's medical records. Lab Data I reviewed the patient's lab results. 02/28/24 11:05 02/28/24 11:05 Radiology Impressions Chest X-Ray 02/28/24 13:52 IMPRESSION: 1. No acute cardiopulmonary finding. Laboratory Results WBC 5.76 10^3/uL (3.29-11.43) 02/28/24 11:05 RBC 5.39 10^6/uL (3.85-5.65) 02/28/24 11:05 Hgb 13.80 g/dL (11.27-16.99) 02/28/24 11:05 Hct 45.2 % (37-53) 02/28/24 11:05 MCV 83.9 fl (82-101) 02/28/24 11:05 MCH 25.6 pg (27-33) L 02/28/24 11:05 MCHC 30.5 g/dL (30-55) 02/28/24 11:05 RDW 16.0 % (12.1-15.1) H 02/28/24 11:05 Plt Count 197 10^3/cmm (157-399) 02/28/24 11:05 MPV 11.0 fL (7.4-10.4) H 02/28/24 11:05 Neut % (Auto) 40.1 % 02/28/24 11:05 Lymph % (Auto) 47.6 % 02/28/24 11:05 [place] % (Auto) 7.3 % 02/28/24 11:05 Eos % (Auto) 4.0 % 02/28/24 11:05 Baso % (Auto) 0.5 % 02/28/24 11:05 Neut # (Auto) 2.31 10^3/uL (1.8-7.7) 02/28/24 11:05 Lymph # (Auto) 2.7 10^3/uL (0.8-4.8) 02/28/24 11:05 [place] # (Auto) 0.4 10^3/uL (0.2-0.9) 02/28/24 11:05 Eos # (Auto) 0.2 10^3/uL (0.0-0.8) 02/28/24 11:05 Baso # (Auto) 0.0 10^3/uL (0.0-0.1) 02/28/24 11:05 Nucleated RBC % (auto) 0 % 02/28/24 11:05 Nucleated RBCs # 0.0 /100WBC 02/28/24 11:05 Sodium 134 mmol/L (136-145) L 02/28/24 11:05 Potassium 4.3 mmol/L (3.5-5.1) 02/28/24 11:05 Chloride 98 mmol/L (98-107) 02/28/24 11:05 Carbon Dioxide 25 mmol/L (22-29) 02/28/24 11:05 Anion Gap 15.3 (5-19) 02/28/24 11:05 BUN 10 mg/dL (6-20) 02/28/24 11:05 Creatinine 1.1 mg/dL (0.7-1.2) 02/28/24 11:05 GFR Calculation 76.2 mL/min (90-130) L 02/28/24 11:05 Glucose 272 mg/dL (65-115) H 02/28/24 11:05 Calculated Osmolality 287 mOsm/kg (285-295) 02/28/24 11:05 Calcium 8.5 mg/dL (8.5-10.5) 02/28/24 11:05 Total Bilirubin 0.3 mg/dL (0.15-1.2) 02/28/24 11:05 AST 85 U/L (0-40) H 02/28/24 11:05 ALT 112 U/L (0-41) H 02/28/24 11:05 Alkaline Phosphatase 48 U/L (40-130) 02/28/24 11:05 Creatine Kinase 92 U/L (39-308) 02/28/24 14:25 Troponin T Baseline 7 ng/L (0-15) 02/28/24 11:05 Troponin T 120 Minute 6.97 ng/L (0-15) 02/28/24 14:25 Delta Troponin T -0.03 ABS# (0-10) L 02/28/24 14:25 Total Protein 7.2 g/dL (6.6-8.7) 02/28/24 11:05 Albumin 3.7 g/dL (3.5-5.2) 02/28/24 11:05 Globulin 3.5 g/dL (1.3-4.6) 02/28/24 11:05 Lipase 45 U/L (13-60) 02/28/24 11:05 Urine Color Yellow (Yellow) 02/28/24 12:05 Urine Appearance Clear (CLEAR) 02/28/24 12:05 Urine pH 5 (5-7) 02/28/24 12:05 Ur Specific [place] 1.020 (1.005-1.030) 02/28/24 12:05 Urine Protein Neg (Negative) 02/28/24 12:05 Urine Glucose (UA) Norm (Normal) 02/28/24 12:05 Urine Ketones Negative (Negative) 02/28/24 12:05 Urine Blood Neg (Negative) 02/28/24 12:05 Urine Nitrate Negative (Negative) 02/28/24 12:05 Urine Bilirubin Neg (Negative) 02/28/24 12:05 Urine Urobilinogen Norm mg/dL (Negative) 02/28/24 12:05 Ur Leukocyte Esterase Negative (Negative) 02/28/24 12:05 All radiology interpretation(s) finalized by discharge Discharge Plan Discharge Patient Disposition: Home Clinical Impression: Chest pain Qualifiers: Chest pain type: unspecified Qualified Code(s): R07.9 - Chest pain, unspecified Condition: Stable Prescriptions: No Action (DME) blood pressure kit-extra large Kit See Rx Instructions .Route Qty: 1 0RF Rx Instructions: As directed ibuprofen 600 mg tablet 600 mg PO Q8H PRN (Reason: Pain) (DME) Dexcom G6 Educational Paraprofessional Misc See Rx Instructions .Route Qty: 1 0RF Rx Instructions: Check blood sugars 3 times daily (DME) Dexcom G6 Sensor Device See Rx Instructions .Route Qty: 3 11RF Rx Instructions: use to check blood sugars 3 times daily albuterol sulfate [ProAir HFA] 90 mcg/actuation HFA aerosol inhaler 2 puff INHALATION QID PRN (Reason: shortness of breath or wheezing) 30 Days Qty: 18 5RF Rx Instructions: 340B nitroglycerin 0.4 mg tablet, sublingual 0.4 mg sublingual Q5M PRN (Reason: chest pain) Qty: 25 3RF Rx Instructions: do not exceed 3 doses per episode metformin 500 mg tablet extended release 24 hr 500 mg PO BID 30 Days Qty: 60 2RF pregabalin 100 mg capsule 100 mg PO BID 30 Days Qty: 60 2RF insulin detemir U-100 100 unit/mL (3 mL) insulin pen 15 unit SUBCUT .at bedtime 30 Days Qty: 15 2RF fluoxetine 40 mg capsule See Rx Instructions .ROUTE .COMPLEX Qty: 90 2RF Dose Instruction: TAKE 1 CAPSULE BY MOUTH EVERY MORNING Rx Instructions: TAKE 1 CAPSULE BY MOUTH EVERY MORNING diltiazem HCl 240 mg capsule,extended release 24 hr 240 mg PO DAILY 30 Days Qty: 30 2RF baclofen 20 mg tablet 20 mg PO BID 90 Days Qty: 180 1RF (DME) lancets Misc See Rx Instructions .ROUTE .MEDSUPPLY Qty: 100 11RF Rx Instructions: For use with glucose meter, brand/type per insurance carvedilol 25 mg tablet 25 mg PO BID Qty: 180 2RF Rx Instructions: must administer with a meal/food furosemide 40 mg tablet 40 mg PO DAILY Qty: 90 2RF hydrochlorothiazide 25 mg tablet 25 mg PO DAILY Qty: 90 2RF Hold Instructions: Doctor's Order potassium chloride 20 mEq tablet extended release 20 meq PO BID Qty: 180 3RF miscellaneous medical supply Misc See Rx Instructions miscellaneous .COMPLEX Qty: 1 0RF Rx Instructions: right wrist brace as directed; miscellaneous medical supply Misc See Rx Instructions miscellaneous .COMPLEX Qty: 1 0RF Rx Instructions: Oxygen 2L into BIPAP as directed; Symbicort 160-4.5 mcg/actuation HFA aerosol inhaler 2 puff inhalation BID 30 Days Qty: 10.2 5RF (DME) pen needle, diabetic [Easy Comfort Pen [place]] 31 gauge x 1/4 needle See Rx Instructions .Route Qty: 100 5RF Rx Instructions: As directed, for use with insulin pen, 340B (DME) Dexcom G6 Transmitter Device See Rx Instructions .ROUTE .COMPLEX Qty: 1 0RF Dose Instruction: USE DIRECTED THREE TIMES DAILY Rx Instructions: USE DIRECTED THREE TIMES DAILY glipizide 10 mg tablet extended release 24hr 10 mg PO DAILY 90 Days Qty: 90 0RF Aspirin Childrens 81 mg tablet,chewable 81 mg PO QAM Discharge Orders: Discharge ED (Routine); Ordered 02/28/24 Ordered By: Sallie Haney Referrals: Hilaria Hamm FNP [Primary Care Provider] - Stand Alone Forms: Work/School Release Coding Level of Care Code ED Surgical Pathologist for Santino Ramachandran
--- NOTE | 2024-02-28 14:34 | PC.NURSE ---
patient states he does not want IV or pain meds unless absolutely neccessary and would like to hold off at this time. jodie notified.
[2024-02-28 15:12] LABS: Creatine Phosphokinase 92 U/L (39-308)
[2024-02-28 15:14] VITALS: BP 119/80; PULSE 82; RESP 14; O2SAT 93
[2024-02-28 15:15] LABS: Troponin(5th) Baseline 7 ng/L (0-15)
[2024-02-28 15:18] LABS: Troponin 5 2HR 6.97 ng/L (0-15); Troponin 5 2HR Delta -0.03 ABS# (0-10)
[2024-02-28 16:14] VITALS: BP 119/80; PULSE 82; RESP 14; TEMP 37.1; O2SAT 93
== END 2024-02-28 15:35 | disposition home or self-care (01) ==
PROVIDERS: Emergency Provider Physician Assistant; PCP Nurse Practitioner Family
DX: R07.9 Chest pain, unspecified (principal); Z79.82 Long term (current) use of aspirin; Z79.84 Long term (current) use of oral hypoglycemic drugs; Z79.4 Long term (current) use of insulin; E11.9 Type 2 diabetes mellitus without complications; I10 Essential (primary) hypertension
CPT/HCPCS: 36415; 71045; 80053; 81003; 82550; 83690; 84484; 85025; 93005; 99285